=== PATIENT | female | born 1950 | race Caucasian/White ===

== ENCOUNTER 2018-08-12 10:17 | Observation (INO) | payer MEDICARE, OTHER, SELFPAY ==
[2018-08-12] VITALS (13 sets, daily range): BP systolic 105–161; BP diastolic 45–72; PULSE 44–104; RESP 14–23; TEMP 36.2–37; O2SAT 92–98; BMI 34.4; BMI 38.3
--- NOTE | 2018-08-12 | DI.US.S_ITS ---
PROCEDURE: US PERIPH VENOUS LOW EXTREM BI INDICATIONS: RIGHT SIDED PULMONARY EMBOLISM TECHNIQUE: Real-time imaging, as well as color and pulse Doppler interrogation, were performed of the deep veins of both legs from the inguinal ligament to the popliteal fossa. COMPARISON: None. FINDINGS: Right: The common femoral, femoral and popliteal veins are normally compressible, and free of intraluminal thrombus. Color and pulse Doppler demonstrate normal phasic intravascular flow. There is normal augmentation response to distal compression maneuver. Left: The common femoral, femoral and popliteal veins are normally compressible, and free of intraluminal thrombus. Color and pulse Doppler demonstrate normal phasic intravascular flow. There is normal augmentation response to distal compression maneuver. IMPRESSION: No DVT in lower extremities. Dictated by: Tracy Ta M.D. on 08/12/2018 at 16:51 Approved by: Tracy Ta M.D. on 08/12/2018 at 16:57
--- NOTE | 2018-08-12 10:00 | DI.ECHO.S_ITS ---
Echocardiogram Report + + :Name: AMY SUMMERS Study Date: 08/13/2018 Height: 67 in : :Hospital Exam Location: [facility] Weight: 244 lb : : Gender: Female BSA: 2.2 m2 : :: 1950 Age: 68 yrs BP: 143/72 mmHg: :Reason For Study: Right sided PE ,/ RV strain : :Ordering Physician: Darion : :Hospitalist Performed By: Carola Page : :Referring: LISA COBB : + + Interpretation Summary 1) M left ventricular size, wall motion, and systolic function (EF 60-65%). 2) Normal right ventricular size and function. 3) The left atrium is severely dilated. 4) No significant valvular abnormalities. 5) The right ventricular systolic pressure is estimated to be at least 42 mmHg based on an estimated right atrial pressure of 15 mm Hg. 6) No prior Echo available for comparison. Procedure: A two-dimensional transthoracic echocardiogram with color flow and Doppler was performed. The study quality was technically adequate. There is no prior echocardiogram noted for this patient. The patient was in normal sinus rhythm during the exam. Left Ventricle: Left ventricular wall thickness is borderline increased. The left ventricle is normal in size. The ejection fraction is estimated to be 60- 65%. There are no focal wall motion abnormalities. Right Ventricle: The right ventricle is normal in size and function. Atria: The left atrium is severely dilated. The right atrium is mildly dilated. There is no Doppler evidence for an interatrial shunt. Mitral Valve: The mitral valve is normal in structure and function. There is mild mitral regurgitation. Aortic Valve: The aortic valve is trileaflet. The aortic valve opens well. There is no aortic valve stenosis. No aortic regurgitation is present. Tricuspid Valve: The tricuspid valve is normal in structure and function. There is trace tricuspid regurgitation. The right ventricular systolic pressure is estimated to be at least 42 mmHg based on an estimated right atrial pressure of 15 mm Hg. Pulmonic Valve: The pulmonic valve is not well visualized. There is a trace or physiologic amount of pulmonic regurgitation. Great Vessels: The aortic root is normal size. The ascending aorta is mildly enlarged. The pulmonary artery is not well visualized, but is probably normal size. The IVC is dilated (diameter is greater than 2.1 cm) and it collapses less than 50% with a sniff. This suggests a high right atrial pressure of 15 mm Hg. Pericardium/ Pleura There is no pericardial effusion. There is no pleural effusion. MMode/2D Measurements & Calculations LVIDd: 5.1 cm LVOT diam: 2.0 cm LVIDs: 3.7 cm Ao root diam: 3.8 cm FS: 26.6 % asc Aorta Diam: 3.8 cm EPSS: 0.36 cm IVSd: 0.93 cm LVPWd: 1.1 cm LV arizmendi. diameter/BSA (cm/m^2): 2.3 LV sys. diameter/BSA (cm/m^2): 1.7 LA A2 area: 27.2 cm2 RA long axis: 5.3 cm LA A4 area: 32.1 cm2 RA area: 21.9 cm2 LA length (vol): 5.9 cm RA vol: 76.2 ml LA vol: 126.1 ml RA : 34.6 ml/m2 LA vol index: 57.3 ml/m2 IVC diam: 2.2 cm RVD1 (basal): 3.9 cm TAPSE: 2.9 cm Doppler Measurements & Calculations Ao V2 max: 182.2 cm/sec LVOT Max Archie: 127.7 cm/sec Ao V2 mean: 128.0 cm/sec LV V1 max P.5 mmHg Ao max P.3 mmHg LV V1 VTI: 24.5 cm Ao mean P.2 mmHg DERIAN(I,D): 2.1 cm2 Ao V2 VTI: 36.9 cm DERIAN(V,D): 2.2 cm2 sev ratio: 0.66 DERIAN indexed to BSA (cm^2/m^2): 0.97 MV E max archie: 94.9 cm/sec TR max archie: 259.2 cm/sec MV A max archie: 88.6 cm/sec TR max P.9 mmHg MV E/A: 1.1 PA V2 max: 95.2 cm/sec Med Peak E' Archie: 7.2 cm/sec PA V2 mean: 60.8 cm/sec E/E' med: 13.1 PA mean P.7 mmHg Lat Peak E' Archie: 8.2 cm/sec PA Accel Time: 0.07 sec E/E' lat: 11.6 E/e' average: 12.4 MV dec time: 0.19 sec MV P1/2t: 55.5 msec MV P1/2t max archie: 96.8 cm/sec SV(LVOT): 78.7 ml MVA(P1/2t): 4.0 cm2 _ Reading Physician:03:16 PM
--- NOTE | 2018-08-12 10:35 | DI.RAD.S_ITS ---
PROCEDURE: XR CHEST 1V INDICATIONS: chest pain TECHNIQUE: One view of the chest was acquired. COMPARISON: None. FINDINGS: Surgical changes and devices: None. Lungs and pleura: Bibasilar parenchymal opacities, right greater than left including small bilateral pleural effusions. Mediastinum: Mediastinal contours appear normal. Slight prominence of the central vessels. Heart size is mildly enlarged. Bones and chest wall: No suspicious bony lesions. Overlying soft tissues appear unremarkable. IMPRESSION: 1. Bibasilar alveolar opacities and small effusions. Bilateral nature suggests pulmonary edema, although there is only mild prominence of the central vessels. Differential diagnosis includes pneumonia. Correlate clinically. 2. Mild cardiomegaly. Dictated by: Clarissa Ford M.D. on 08/12/2018 at 11:48 Approved by: Clarissa Ford M.D. on 08/12/2018 at 11:50
--- NOTE | 2018-08-12 10:55 | PC.NURSE ---
Pt noted to be in bigeminy consistantly. EKG rate 86-104 w/ perfusing rate 43. Pt denies all chest pain except w/ deep breath. Denies shortness of breath except w/ pain. Denies diaphorisis, nausea / vomiting. Skin is pink / warm / dry. No acute distress.
[2018-08-12 11:24] LABS: Add Manual Diff / Slide Review NO; Basophils Absolute Auto 100 /uL (0-100); Basophils Percent Auto 0.7 % (0-2); Eosinophils Absolute Auto 100 /uL (0-450); Eosinophils Percent Auto 0.4 % (2-4); Hemoglobin 14.2 g/dL (12.0-16.0); Lymphocytes Absolute Auto 1700 /uL (1100-4500); Lymphocytes Percent Auto 12.9 % (25-40); Mean Corpuscular Hemoglobin 28.8 PG (26-34); Mean Corpuscular Volume 87.4 fL (80-100); Monocytes Absolute Auto 1200 /uL (0-900); Monocytes Percent Auto 9.2 % (3-14); Neutrophils Absolute Auto 10000 /uL (1500-7000); Neutrophils Percent Auto 76.8 % (50-75); Platelet Count 193 X10^3/uL (150-400); Red Blood Cell Count 4.92 X10^6/uL (4.0-5.2); Red Cell Distribution Width 13.4 % (11.6-14.8)
[2018-08-12 11:32] LABS: Prothrombin Time 11.6 SECONDS (10.1-12.7)
[2018-08-12 11:35] LABS: PTT Partial Thromboplastin Tim 25 SECONDS (26.4-36.2)
[2018-08-12 11:36] LABS: Alanine Aminotransferase 29 IU/L (9-52); Albumin 4.6 g/dL (3.5-5.0); Albumin Globulin Ratio 1.3 (1.0-2.8); Alkaline Phosphatase 104 U/L (38-126); Aspartate Aminotransferase 17 IU/L (14-36); BUN Creatinine Ratio 18.9 (6-22); Bilirubin Total 0.9 mg/dL (0.2-1.3); Blood Urea Nitrogen 17 mg/dL (7-17); Calcium 9.7 mg/dL (8.4-10.2); Carbon Dioxide 24 mmol/L (22-32); Chloride 103 mmol/L (98-107); Creatine Kinase 96 U/L (30-135); Estimated Glomerular Filt Rate > 60.0 mL/min (>60); Globulin 3.6 g/dL (1.7-4.1); Glucose 134 mg/dL (80-110); HEMOLYSIS < 15 (0-50); Lipase 119 U/L (23-300); Potassium 4.1 mmol/L (3.4-5.1); Sodium 139 mmol/L (137-145); Total Protein 8.2 g/dL (6.3-8.2)
[2018-08-12 11:48] LABS: Troponin I < 0.012 ng/mL (0.01-0.034)
--- NOTE | 2018-08-12 13:18 | ED.CHESTPAIN ---
HPI - Chest Pain General Chief Complaint: Chest Pain Stated Complaint: shortness of breath, rt side pain upon breathing Time Seen by Provider: 08/12/18 13:16 Source: patient, family () and old records reviewed Mode of arrival: ambulatory Limitations: no limitations History of Present Illness HPI narrative: This is a 68-year-old female comes to the emergency department with complaint of right-sided chest pain patient states it is her right lateral chest. She states it started the night before last. She woke up with it. She has noticed it is worse at nighttime. It feels worse when she lays back flat she takes a deep breath, has a cough all this makes it worse. She denies any fevers, denies any nasal congestion or upper respiratory symptoms. She always has a little bit of cough in the morning. She states she has not had any new change in the character or frequency. She states she does feel a little short of breath. and that maybe she has some exertional shortness of breath but that she feels that might just be from the inspiratory pain. If she is sitting quietly she does not have any symptoms. She denies any similar symptoms in the past. No nausea no vomiting no issues with bowel movements or urination. She has had a little swelling in her lower extremities but nothing significant or new. She always gets some cramping in her extremities but states she has had a little bit more in the right calf. She does use CPAP, she takes medication for blood pressure and cholesterol. No prior surgeries. No tobacco. She drinks 2 alcoholic drinks 4 times weekly. She did have a car trip where she drove to [place] and back over about 2 months period and her mom had a blood clot at the age of 90 for unknown reasons. Patient used to take an aspirin daily but was told that she could stop by her primary care. Related Data Home Medications Medication Instructions Recorded Confirmed atorvastatin [Lipitor] 10 mg PO HS #0 tab 12/11/15 08/12/18 amlodipine 7.5 mg PO BEDTIME 08/12/18 08/12/18 losartan 100 mg PO DAILY 08/12/18 08/12/18 metoprolol succinate 50 mg PO BEDTIME 08/12/18 08/12/18 Allergies Allergy/AdvReac Type Severity Reaction Status Date / Time No Known Drug Allergies Allergy Verified 08/12/18 10:25 Review of Systems Review of Systems ROS Unobtainable: All systems reviewed & are unremarkable except as noted in HPI and below Constitutional Denies chills, Denies fever(s), Denies lethargy and Denies weakness ENT Ears, Nose, Mouth, and Throat: Denies nasal congestion Cardiovascular Reports chest pain, Denies chest pain at rest, Denies chest pain with activity, Denies diaphoresis, Denies syncope, Denies rapid heart rate, Reports edema (Slight in lower extremity), Denies irregular heart rhythm, Denies lightheadedness, Denies radiating jaw, neck or arm pain, Denies palpitations, Denies dyspnea, Reports dyspnea on exertion and Denies orthopnea Respiratory Denies chest congestion, Reports cough (Mild, no new change), Denies hemoptysis, Reports pain on inspiration, Reports pain with cough, Denies dyspnea, Reports dyspnea on exertion and Denies wheezing Gastrointestinal Gastrointestinal: Denies abdominal pain, Denies change in bowel habits, Denies diarrhea, Denies nausea and Denies vomiting Musculoskeletal Denies back pain Integumentary/Breasts Denies new lesions and Denies rash Neurologic Denies syncope and Denies weakness Endocrine Denies palpitations Hematologic/Lymphatic Denies other (Blood clot) Allergic/Immunologic Denies wheezing [facility] Medical History High cholesterol (Acute) Hypertension (Acute) Social History (Updated 08/12/18 @ 15:01 by Zuleyma Ely DO) marital status: Smoking Status: Never smoker alcohol intake: current substance use type: does not use Social History (Updated 08/12/18 @ 15:01 by Zuleyma Ely DO) marital status: household members: spouse Smoking Status: Never smoker alcohol intake: current substance use type: does not use Exam Narrative Exam Narrative: GENERAL: Alert and oriented x three, obese, pleasant well-appearing female in mild distress. HEENT: Head normocephalic, atraumatic, EOMI, pupils reactive, face symmetric, moist mucous membranes NECK: Supple, full range of motion CARDIOVASCULAR: Regular rate and rhythm without murmurs, rubs or gallops. Unable to reproduce pain with palpation. No bruising, rash or skin color changes to the right side of the chest. RESPIRATORY: Breath sounds equal bilaterally, no wheezes rales or rhonchi. ABDOMEN: Soft, nontender. Normoactive bowel sounds all 4 quadrants. No guarding or rebound, rigidity, no mass : No CVA tenderness EXTREMITIES: Normal range of motion. 2+ pulses bilateral lower extremities. no edema appreciated on palpation. no swelling in right versus left, equal circumference. Neurovascularly intact NEUROLOGICAL: Cranial nerves II through XII grossly intact. Moving all extremities SKIN: Warm, dry, no petechiae, no rashes or lesions. Initial Vital Signs Initial Vital Signs: Vital Signs Temperature 98.2 F 08/12/18 10:25 Pulse Rate 52 L 08/12/18 10:25 Respiratory Rate 16 08/12/18 10:25 Blood Pressure 159/45 H 08/12/18 10:25 Pulse Oximetry 95 08/12/18 10:25 Course Orders Ordered: ED Orders 08/12/18 10:35 XR chest 1V Stat 08/12/18 10:50 Complete Blood Count AUTO DIFF Stat Comprehensive Metabolic Panel Stat Lipase Stat Partial Thromboplastin Time Stat Prothrombin Time INR Stat Troponin & CK Cardiac Panel Stat 08/12/18 13:06 B Type Natriuretic Peptide Stat 08/12/18 13:55 Troponin & CK Cardiac Panel Stat 08/12/18 14:05 CT angio chest PE protocol Stat 08/12/18 15:51 Consult to Discharge Planning Routine 08/12/18 15:56 Education, smoking cessation ONGOING 08/12/18 16:35 Factor II (Prothrombin) Stat 08/12/18 17:32 Factor V Leiden Mutation Routine Troponin I Q6H 08/12/18 21:50 Troponin I Q6H 08/13/18 06:00 Basic Metabolic Panel Routine Complete Blood Count AUTO DIFF Routine Acetaminophen (Tylenol) 650 mg PO Q6HR PRN PRN Reason: As Needed for Fever/Mild Pain Last Admin: 08/12/18 18:05 Dose: 650 mg Amlodipine Besylate (Norvasc) 7.5 mg PO BEDTIME SYBIL Atorvastatin Calcium (Lipitor) 10 mg PO BEDTIME SYBIL Sodium Chloride (Normal Saline 0.9%) 1,000 mls @ 150 mls/hr IV CONT SYBIL Last Admin: 08/12/18 16:56 Dose: 150 mls/hr Infusion: 08/12/18 16:56 Dose: 150 mls/hr Admin: 08/12/18 14:51 Dose: 150 mls/hr Losartan Potassium (Cozaar) 100 mg PO DAILY SYBIL Metoprolol Succinate (Toprol Xl) 50 mg PO BEDTIME [facility] Ondansetron HCl (Zofran Odt) 4 mg PO Q8HR PRN PRN Reason: Nausea And Vomiting Rivaroxaban (Xarelto) 15 mg PO BIDWM SYBIL Discontinued Medications Enoxaparin Sodium (Lovenox) 100 mg 1 mg/kg (100 mg) SUBCUT NOW ONE Stop: 08/12/18 14:47 Last Admin: 08/12/18 14:51 Dose: Not Given Enoxaparin Sodium (Lovenox) 110 mg 1 mg/kg (110 mg) SUBCUT NOW ONE Stop: 08/12/18 14:53 Last Admin: 08/12/18 15:19 Dose: Not Given Enoxaparin Sodium (Lovenox) 100 mg 1 mg/kg (100 mg) SUBCUT NOW ONE Stop: 08/12/18 15:01 Last Admin: 08/12/18 15:18 Dose: Not Given Enoxaparin Sodium (Lovenox) 110 mg 1 mg/kg (100 mg) SUBCUT NOW ONE Stop: 08/12/18 15:16 Last Admin: 08/12/18 15:19 Dose: 110 mg Ketorolac Tromethamine (Toradol) 30 mg IV NOW ONE Stop: 08/12/18 15:31 Last Admin: 08/12/18 15:31 Dose: 30 mg Ketorolac Tromethamine (Toradol) 10 mg PO Q6HR PRN PRN Reason: Pain, Moderate (4-6) Stop: 08/17/18 15:58 Vital Signs - 8 hr 08/12/18 12:00 08/12/18 13:00 08/12/18 13:33 Temperature Pulse Rate 91 H 80 44 L Respiratory Rate 22 22 18 Blood Pressure Blood Pressure [Right Arm] 120/47 L 120/46 L 161/51 H Pulse Oximetry 94 92 98 08/12/18 14:38 08/12/18 15:45 08/12/18 16:45 Temperature 98.6 F Pulse Rate 90 82 87 Respiratory Rate 23 16 18 Blood Pressure 143/72 H Blood Pressure [Right Arm] 115/47 L 139/59 L Pulse Oximetry 94 98 93 MDM - Chest Pain Lab Data Attestation: I reviewed the patient's lab results. Result diagrams: 08/12/18 10:50 08/12/18 10:50 Lab Results 08/12/18 08/12/18 08/12/18 Range/Units 10:50 10:50 10:50 WBC 13.0 H (4.5-11.0) X10^3/uL RBC 4.92 (4.0-5.2) X10^6/uL Hgb 14.2 (12.0-16.0) g/dL Hct 43.0 (36-46) % MCV 87.4 (80-100) fL MCH 28.8 (26-34) PG MCHC 33.0 (30-36) % RDW 13.4 (11.6-14.8) % Plt Count 193 (150-400) X10^3/uL Neut % (Auto) 76.8 H (50-75) % Lymph % (Auto) 12.9 L (25-40) % [place] % (Auto) 9.2 (3-14) % Eos % (Auto) 0.4 L (2-4) % Baso % (Auto) 0.7 (0-2) % Neut # (Auto) 36982 H (8416-6818) /uL Lymph # (Auto) 1700 (6006-3433) /uL [place] # (Auto) 1200 H (0-900) /uL Eos # (Auto) 100 (0-450) /uL Baso # (Auto) 100 (0-100) /uL PT 11.6 (10.1-12.7) SECONDS INR 1.0 (0.9-1.3) APTT 25 L (26.4-36.2) SECONDS Sodium 139 (137-145) mmol/L Potassium 4.1 (3.4-5.1) mmol/L Chloride 103 (98-107) mmol/L Carbon Dioxide 24 (22-32) mmol/L BUN 17 (7-17) mg/dL Creatinine 0.90 (0.52-1.04) mg/dL Estimated GFR > 60.0 (>60) mL/min BUN/Creatinine Ratio 18.9 (6-22) Glucose 134 H (80-110) mg/dL Calcium 9.7 (8.4-10.2) mg/dL Total Bilirubin 0.9 (0.2-1.3) mg/dL AST 17 (14-36) IU/L ALT 29 (9-52) IU/L Alkaline Phosphatase 104 (38-126) U/L Total Creatine Kinase 96 (30-135) U/L CK-MB (CK-2) TNP CK-MB (CK-2) Rel Index TNP Troponin I < 0.012 (0.01-0.034) ng/mL B-Natriuretic Peptide (<100) Total Protein 8.2 (6.3-8.2) g/dL Albumin 4.6 (3.5-5.0) g/dL Globulin 3.6 (1.7-4.1) g/dL Albumin/Globulin Ratio 1.3 (1.0-2.8) Lipase 119 (23-300) U/L 08/12/18 08/12/18 08/12/18 Range/Units 13:06 13:55 17:32 WBC (4.5-11.0) X10^3/uL RBC (4.0-5.2) X10^6/uL Hgb (12.0-16.0) g/dL Hct (36-46) % MCV (80-100) fL MCH (26-34) PG MCHC (30-36) % RDW (11.6-14.8) % Plt Count (150-400) X10^3/uL Neut % (Auto) (50-75) % Lymph % (Auto) (25-40) % [place] % (Auto) (3-14) % Eos % (Auto) (2-4) % Baso % (Auto) (0-2) % Neut # (Auto) (8594-0711) /uL Lymph # (Auto) (4374-4794) /uL [place] # (Auto) (0-900) /uL Eos # (Auto) (0-450) /uL Baso # (Auto) (0-100) /uL PT (10.1-12.7) SECONDS INR (0.9-1.3) APTT (26.4-36.2) SECONDS Sodium (137-145) mmol/L Potassium (3.4-5.1) mmol/L Chloride (98-107) mmol/L Carbon Dioxide (22-32) mmol/L BUN (7-17) mg/dL Creatinine (0.52-1.04) mg/dL Estimated GFR (>60) mL/min BUN/Creatinine Ratio (6-22) Glucose (80-110) mg/dL Calcium (8.4-10.2) mg/dL Total Bilirubin (0.2-1.3) mg/dL AST (14-36) IU/L ALT (9-52) IU/L Alkaline Phosphatase (38-126) U/L Total Creatine Kinase 92 (30-135) U/L CK-MB (CK-2) TNP CK-MB (CK-2) Rel Index TNP Troponin I < 0.012 < 0.012 (0.01-0.034) ng/mL B-Natriuretic Peptide < 100 (<100) Total Protein (6.3-8.2) g/dL Albumin (3.5-5.0) g/dL Globulin (1.7-4.1) g/dL Albumin/Globulin Ratio (1.0-2.8) Lipase (23-300) U/L Urine Dip Bedside Urine Glucose Negative Bedside Urine Bilirubin - Negative Bedside Urine Ketone - Negative Urine Specific [place] 1.030 Bedside Urine Occult Blood - Negative Bedside Urine pH 5.5 Bedside Urine Protein +/- 15 Bedside Urine Urobilinogen - Negative Bedside Urine Nitrite - Negative Bedside Urine Leukocytes - Negative Esterase Imaging Data CTA chest: Radiologist's impression: [place] [address] CT Scan Report Signed Patient: Aleena Mason [facility]#: [id number] : 1950Acct:[id number] Age/Sex: 68 / FDate of Service: 08/12/18 Loc: ED Accession Number: [id number] Procedure: CT angio chest PE protocol Ordering Provider: Zuleyma Ely D.O. PROCEDURE: CT ANGIO CHEST PE PROTOCOL INDICATIONS: right chest pain, recent long distance road trip, mom had cl TECHNIQUE: After the administration of intravenous contrast, 2 mm thick sections acquired from the pulmonary apices to the posterior costophrenic angles. 3-dimensional maximum intensity projection (MIP) coronal and sagittal reformats were then acquired through the thorax. For radiation dose reduction, the following was used: automated exposure control, adjustment of mA and/or kV according to patient size. COMPARISON: None. Diagnostic FINDINGS: Image quality: Excellent. Pulmonary arteries: There is a moderate-sized filling defect identified within the right lower lobe pulmonary artery which subsequently extends into the segmental and subsegmental pulmonary arterial branches. There may be small pulmonary emboli within the left lower lobe pulmonary arteries. No definite upper lobe pulmonary emboli are evident. No definitive right middle lobe pulmonary embolus is evident. There is no saddle embolism or embolus within the main pulmonary arterial trunk. No definitive filling of the interatrial septum is evident. Lungs and pleura: Bibasilar areas of consolidation are identified within the posterior bilateral lower lobes (right greater than left). There also is mild consolidation within it the inferior margin of the right middle lobe. There is a small right-sided pleural effusion. The possibility of a superimposed pulmonary infarction within the posterior right lower lobe is difficult to exclude. No pneumothorax is evident. No definitive lung mass is appreciated. Mediastinum: Heart size is borderline enlarged. Moderate thinning of the left ventricular apex may be related to previous area of ischemia. No aneurysm is evident. No pericardial effusion is evident. There appear to be areas of coronary artery atherosclerosis. No mediastinal or hilar adenopathy. Thoracic aorta is normal in caliber and enhancement. There is mild aortic atherosclerosis. Esophagus is normal in caliber, with a small hiatal hernia. Bones and chest wall: No suspicious bony lesions. Ribs and thoracic spine appear intact throughout. Moderate degenerative changes of the thoracic spine are evident. Thyroid gland is not enlarged or adequately evaluated. No axillary or supraclavicular adenopathy. Abdomen: Visualized upper abdominal solid organs appear normal in the early arterial phase of enhancement. IMPRESSION: 1. Moderate-sized emboli within the right lower lobe pulmonary arterial branches. There may be additional very small emboli within the left lower lobe pulmonary arteries. No saddle embolism. 2. Bibasilar consolidation (right greater than left) probably represents a combination of atelectasis and pulmonary infarctions. Superimposed pneumonia is felt to be less likely, but cannot be excluded. 3. Small right-sided pleural effusion. 4. Coronary and aortic atherosclerosis. Thinning of the myocardium of the left ventricular apex may be related to prior area of ischemia. Clinical correlation is recommended. 5. Small hiatal hernia. Note: Findings were discussed with Dr. Ely at 1428 hours (PST) on 08/12/18. Dictated by: Frandy Barboza M.D. on 08/12/2018 at 13:14 Approved by: Frandy Barboza M.D. on 08/12/2018 at 13:28 Chest x-ray: Radiologist's impression: Aleena Mason 68 F [address] [address] XRay Report Signed Patient: Aleena Mason [facility]#: [id number] : 1950Acct:[id number] Age/Sex: 68 / FDate of Service: 08/12/18 Loc: ED Accession Number: [id number] Procedure: XR chest 1V Ordering Provider: Zuleyma Ely D.O. PROCEDURE: XR CHEST 1V INDICATIONS: chest pain TECHNIQUE: One view of the chest was acquired. COMPARISON: None. FINDINGS: Surgical changes and devices: None. Lungs and pleura: Bibasilar parenchymal opacities, right greater than left including small bilateral pleural effusions. Mediastinum: Mediastinal contours appear normal. Slight prominence of the central vessels. Heart size is mildly enlarged. Bones and chest wall: No suspicious bony lesions. Overlying soft tissues appear unremarkable. IMPRESSION: 1. Bibasilar alveolar opacities and small effusions. Bilateral nature suggests pulmonary edema, although there is only mild prominence of the central vessels. Differential diagnosis includes pneumonia. Correlate clinically. 2. Mild cardiomegaly. Dictated by: Clarissa Ford M.D. on 08/12/2018 at 11:48 Approved by: Clarissa Ford M.D. on 08/12/2018 at 11:50 ECG Data Attestation: I personally reviewed and interpreted this ECG as follows: Interpretation: Sinus rhythm with bigeminal pattern. The rate of 96 P are 191 QRS of 108 and QTC of 417. Patient has inversion of T-wave in lead 3. No ST elevation. Patient has a prior EKG that it appears similar except for bigeminal pattern T-wave was flattened in lead 3. MDM Narrative Medical decision making narrative: Patient's vital signs have been appropriate, she has not been hypotensive. Heart rate has been up to the 90s occasionally 100 range but typically is in the 90s to 80s. Patient continues to have some chest pain. EKG shows bigeminy, difficult to tell if she has any ST depression in lateral leads with a bigeminal pattern but does appear somewhat similar to her prior EKG except for the pattern changes. Patient's troponin x2 is negative. She has a slight white count, renal function, electrolytes and hemoglobin are appropriate. Chest x-ray showed possible pulmonary edema versus pneumonia. BNP was negative. Patient had multiple risk factors including obesity, long distance travel as well as a family history of blood clots, PE exam was positive. no right heart strain is noted on the CT or in discussion with Radiology. Spoke with Dr. Barajas she accepts. I reviewed patient's imaging, lab work. Plan for observation. Patient was given Lovenox 1 milligram/kilogram sc. Primary care is Dr. Moseley although he has retired so she has been seeing Dr. Hudson. Discharge Plan Departure Patient Disposition: Admitted as Observation Clinical Impression: Cardiac arrhythmia Pulmonary embolism Qualifiers: Pulmonary embolism type: other Chronicity: acute Discharge Date/Time: 08/12/18 16:30 Interventions: ED Discharge Assessment Last Done: 08/12/18 16:30 Referrals: Yoel Moseley MD [Primary Care Provider] - Admit Date/Time: 08/12/18 15:00 Admit Provider: Sondra Barajas
--- NOTE | 2018-08-12 13:36 | PC.NURSE ---
Pt has just returned from cross country drive. Endorses leg cramps. Mother had blood clot of unknown origen in her medical history. Pt does not.
[2018-08-12 13:39] LABS: B Type Natriuretic Peptide < 100 (<100)
--- NOTE | 2018-08-12 14:05 | DI.CT.S_ITS ---
PROCEDURE: CT ANGIO CHEST PE PROTOCOL INDICATIONS: right chest pain, recent long distance road trip, mom had cl TECHNIQUE: After the administration of intravenous contrast, 2 mm thick sections acquired from the pulmonary apices to the posterior costophrenic angles. 3-dimensional maximum intensity projection (MIP) coronal and sagittal reformats were then acquired through the thorax. For radiation dose reduction, the following was used: automated exposure control, adjustment of mA and/or kV according to patient size. COMPARISON: None. Diagnostic FINDINGS: Image quality: Excellent. Pulmonary arteries: There is a moderate-sized filling defect identified within the right lower lobe pulmonary artery which subsequently extends into the segmental and subsegmental pulmonary arterial branches. There may be small pulmonary emboli within the left lower lobe pulmonary arteries. No definite upper lobe pulmonary emboli are evident. No definitive right middle lobe pulmonary embolus is evident. There is no saddle embolism or embolus within the main pulmonary arterial trunk. No definitive filling of the interatrial septum is evident. Lungs and pleura: Bibasilar areas of consolidation are identified within the posterior bilateral lower lobes (right greater than left). There also is mild consolidation within it the inferior margin of the right middle lobe. There is a small right-sided pleural effusion. The possibility of a superimposed pulmonary infarction within the posterior right lower lobe is difficult to exclude. No pneumothorax is evident. No definitive lung mass is appreciated. Mediastinum: Heart size is borderline enlarged. Moderate thinning of the left ventricular apex may be related to previous area of ischemia. No aneurysm is evident. No pericardial effusion is evident. There appear to be areas of coronary artery atherosclerosis. No mediastinal or hilar adenopathy. Thoracic aorta is normal in caliber and enhancement. There is mild aortic atherosclerosis. Esophagus is normal in caliber, with a small hiatal hernia. Bones and chest wall: No suspicious bony lesions. Ribs and thoracic spine appear intact throughout. Moderate degenerative changes of the thoracic spine are evident. Thyroid gland is not enlarged or adequately evaluated. No axillary or supraclavicular adenopathy. Abdomen: Visualized upper abdominal solid organs appear normal in the early arterial phase of enhancement. IMPRESSION: 1. Moderate-sized emboli within the right lower lobe pulmonary arterial branches. There may be additional very small emboli within the left lower lobe pulmonary arteries. No saddle embolism. 2. Bibasilar consolidation (right greater than left) probably represents a combination of atelectasis and pulmonary infarctions. Superimposed pneumonia is felt to be less likely, but cannot be excluded. 3. Small right-sided pleural effusion. 4. Coronary and aortic atherosclerosis. Thinning of the myocardium of the left ventricular apex may be related to prior area of ischemia. Clinical correlation is recommended. 5. Small hiatal hernia. Note: Findings were discussed with Dr. Ely at 1428 hours (PST) on 08/12/18. Dictated by: Frandy Barboza M.D. on 08/12/2018 at 13:14 Approved by: Frandy Barboza M.D. on 08/12/2018 at 13:28
[2018-08-12 14:19] LABS: Creatine Kinase 92 U/L (30-135)
[2018-08-12 14:32] LABS: Troponin I < 0.012 ng/mL (0.01-0.034)
--- NOTE | 2018-08-12 14:40 | ED_ITS ---
HPI - Chest Pain General Chief Complaint: Chest Pain Stated Complaint: shortness of breath, rt side pain upon breathing Time Seen by Provider: 08/12/18 13:16 Source: patient, family () and old records reviewed Mode of arrival: ambulatory Limitations: no limitations History of Present Illness HPI narrative: This is a 68-year-old female comes to the emergency department with complaint of right-sided chest pain patient states it is her right lateral chest. She states it started the night before last. She woke up with it. She has noticed it is worse at nighttime. It feels worse when she lays back flat s he takes a deep breath, has a cough all this makes it worse. She denies any fevers, denies any nasal congestion or upper respiratory symptoms. She always has a little bit of cough in the morning. She states she has not had any new change in the character or frequency. She states she does feel a little short of breath. and that maybe she has some exertional shortness of breath but that she feels that might just be from the inspiratory pain. If she is sitting quietly she does not have any symptoms. She denies any similar symptoms in the past. No nausea no vomiting no issues with bowel movements or urination. She has had a little swelling in her lower extremities but nothing significant or new. She always gets some cramping in her extremities but states she has had a little bit more in the right calf. She does use CPAP, she takes medication for blood pressure and cholesterol. No prior surgeries. No tobacco. She drinks 2 alcoholic drinks 4 times weekly. She did have a car trip where she drove to [place] and back over about 2 months period and her mom had a blood clot at the age of 90 for unknown reasons. Patient used to take an aspirin daily but was told that she could stop by her primary care. Related Data Home Medications Medication Instructions Recorded Confirmed atorvastatin [Lipitor] 10 mg PO HS #0 tab 12/11/15 08/12/18 amlodipine 7.5 mg PO BEDTIME 08/12/18 08/12/18 losartan 100 mg PO DAILY 08/12/18 08/12/18 metoprolol succinate 50 mg PO BEDTIME 08/12/18 08/12/18 Allergies Allergy/AdvReac Type Severity Reaction Status Date / Time No Known Drug Allergies Allergy Verified 08/12/18 10:25 Review of Systems Review of Systems ROS Unobtainable: All systems reviewed & are unremarkable except as noted in HPI and below Constitutional Denies chills, Denies fever(s), Denies lethargy and Denies weakness ENT Ears, Nose, Mouth, and Throat: Denies nasal congestion Cardiovascular Reports chest pain, Denies chest pain at rest, Denies chest pain with activity, Denies diaphoresis, Denies syncope, Denies rapid heart rate, Reports edema (Slight in lower extremity), Denies irregular heart rhythm, Denies lightheadedness, Denies radiating jaw, neck or arm pain, Denies palpitations, Denies dyspnea, Reports dyspnea on exertion and Denies orthopnea Respiratory Denies chest congestion, Reports cough (Mild, no new change), Denies hemoptysis, Reports pain on inspiration, Reports pain with cough, Denies dyspnea, Reports dyspnea on exertion and Denies wheezing Gastrointestinal Gastrointestinal: Denies abdominal pain, Denies change in bowel habits, Denies diarrhea, Denies nausea and Denies vomiting Musculoskeletal Denies back pain Integumentary/Breasts Denies new lesions and Denies rash Neurologic Denies syncope and Denies weakness Endocrine Denies palpitations Hematologic/Lymphatic Denies other (Blood clot) Allergic/Immunologic Denies wheezing [facility] Medical History High cholesterol (Acute) Hypertension (Acute) Social History (Updated 08/12/18 @ 15:01 by Zuleyma Ely DO) marital status: Smoking Status: Never smoker alcohol intake: current substance use type: does not use Social History (Updated 08/12/18 @ 15:01 by Zuleyma Ely DO) marital status: household members: spouse Smoking Status: Never smoker alcohol intake: current substance use type: does not use Exam Narrative Exam Narrative: GENERAL: Alert and oriented x three, obese, pleasant well- appearing female in mild distress. HEENT: Head normocephalic, atraumatic, EOMI, pupils reactive, face symmetric, moist mucous membranes NECK: Supple, full range of motion CARDIOVASCULAR: Regular rate and rhythm without murmurs, rubs or gallops. Unable to reproduce pain with palpation. No bruising, rash or skin color changes to the right side of the chest. RESPIRATORY: Breath sounds equal bilaterally, no wheezes rales or rhonchi. ABDOMEN: Soft, nontender. Normoactive bowel sounds all 4 quadrants. No guard ing or rebound, rigidity, no mass : No CVA tenderness EXTREMITIES: Normal range of motion. 2+ pulses bilateral lower extremities. no edema appreciated on palpation. no swelling in right versus left, equal circumference. Neurovascularly intact NEUROLOGICAL: Cranial nerves II through XII grossly intact. Moving all extremities SKIN: Warm, dry, no petechiae, no rashes or lesions. Initial Vital Signs Initial Vital Signs: Vital Signs Temperature 98.2 F 08/12/18 10:25 Pulse Rate 52 L 08/12/18 10:25 Respiratory Rate 16 08/12/18 10:25 Blood Pressure 159/45 H 08/12/18 10:25 Pulse Oximetry 95 08/12/18 10:25 Course Orders Ordered: ED Orders 08/12/18 10:35 XR chest 1V Stat 08/12/18 10:50 Complete Blood Count AUTO DIFF Stat Comprehensive Metabolic Panel Stat Lipase Stat Partial Thromboplastin Time Stat Prothrombin Time INR Stat Troponin & CK Cardiac Panel Stat 08/12/18 13:06 B Type Natriuretic Peptide Stat 08/12/18 13:55 Troponin & CK Cardiac Panel Stat 08/12/18 14:05 CT angio chest PE protocol Stat 08/12/18 15:51 Consult to Discharge Planning Routine 08/12/18 15:56 Education, smoking cessation ONGOING 08/12/18 16:35 Factor II (Prothrombin) Stat 08/12/18 17:32 Factor V Leiden Mutation Routine Troponin I Q6H 08/12/18 21:50 Troponin I Q6H 08/13/18 06:00 Basic Metabolic Panel Routine Complete Blood Count AUTO DIFF Routine Acetaminophen (Tylenol) 650 mg PO Q6HR PRN PRN Reason: As Needed for Fever/Mild Pain Last Admin: 08/12/18 18:05 Dose: 650 mg Amlodipine Besylate (Norvasc) 7.5 mg PO BEDTIME SYBIL Atorvastatin Calcium (Lipitor) 10 mg PO BEDTIME SYBIL Sodium Chloride (Normal Saline 0.9%) 1,000 mls @ 150 mls/hr IV CONT SYBIL Last Admin: 08/12/18 16:56 Dose: 150 mls/hr Infusion: 08/12/18 16:56 Dose: 150 mls/hr Admin: 08/12/18 14:51 Dose: 150 mls/hr Losartan Potassium (Cozaar) 100 mg PO DAILY SYBIL Metoprolol Succinate (Toprol Xl) 50 mg PO BEDTIME [facility] Ondansetron HCl (Zofran Odt) 4 mg PO Q8HR PRN PRN Reason: Nausea And Vomiting Rivaroxaban (Xarelto) 15 mg PO BIDWM SYBIL Discontinued Medications Enoxaparin Sodium (Lovenox) 100 mg 1 mg/kg (100 mg) SUBCUT NOW ONE Stop: 08/12/18 14:47 Last Admin: 08/12/18 14:51 Dose: Not Given Enoxaparin Sodium (Lovenox) 110 mg 1 mg/kg (110 mg) SUBCUT NOW ONE Stop: 08/12/18 14:53 Last Admin: 08/12/18 15:19 Dose: Not Given Enoxaparin Sodium (Lovenox) 100 mg 1 mg/kg (100 mg) SUBCUT NOW ONE Stop: 08/12/18 15:01 Last Admin: 08/12/18 15:18 Dose: Not Given Enoxaparin Sodium (Lovenox) 110 mg 1 mg/kg (100 mg) SUBCUT NOW ONE Stop: 08/12/18 15:16 Last Admin: 08/12/18 15:19 Dose: 110 mg Ketorolac Tromethamine (Toradol) 30 mg IV NOW ONE Stop: 08/12/18 15:31 Last Admin: 08/12/18 15:31 Dose: 30 mg Ketorolac Tromethamine (Toradol) 10 mg PO Q6HR PRN PRN Reason: Pain, Moderate (4-6) Stop: 08/17/18 15:58 Vital Signs - 8 hr 08/12/18 12:00 08/12/18 13:00 08/12/18 13:33 Temperature Pulse Rate 91 H 80 44 L Respiratory Rate 22 22 18 Blood Pressure Blood Pressure [Right Arm] 120/47 L 120/46 L 161/51 H Pulse Oximetry 94 92 98 08/12/18 14:38 08/12/18 15:45 08/12/18 16:45 Temperature 98.6 F Pulse Rate 90 82 87 Respiratory Rate 23 16 18 Blood Pressure 143/72 H Blood Pressure [Right Arm] 115/47 L 139/59 L Pulse Oximetry 94 98 93 MDM - Chest Pain Lab Data Attestation: I reviewed the patient's lab results. Result diagrams: 08/12/18 10:50 08/12/18 10:50 Lab Results 08/12/18 08/12/18 08/12/18 Range/Units 10:50 10:50 10:50 WBC 13.0 H (4.5-11.0) X10^3/uL RBC 4.92 (4.0-5.2) X10^6/uL Hgb 14.2 (12.0-16.0) g/dL Hct 43.0 (36-46) % MCV 87.4 (80-100) fL MCH 28.8 (26-34) PG MCHC 33.0 (30-36) % RDW 13.4 (11.6-14.8) % Plt Count 193 (150-400) X10^3/uL Neut % (Auto) 76.8 H (50-75) % Lymph % (Auto) 12.9 L (25-40) % [place] % (Auto) 9.2 (3-14) % Eos % (Auto) 0.4 L (2-4) % Baso % (Auto) 0.7 (0-2) % Neut # (Auto) 97540 H (3373-9442) /uL Lymph # (Auto) 1700 (6123-7353) /uL [place] # (Auto) 1200 H (0-900) /uL Eos # (Auto) 100 (0-450) /uL Baso # (Auto) 100 (0-100) /uL PT 11.6 (10.1-12.7) SECONDS INR 1.0 (0.9-1.3) APTT 25 L (26.4-36.2) SECONDS Sodium 139 (137-145) mmol/L Potassium 4.1 (3.4-5.1) mmol/L Chloride 103 (98-107) mmol/L Carbon Dioxide 24 (22-32) mmol/L BUN 17 (7-17) mg/dL Creatinine 0.90 (0.52-1.04) mg/dL Estimated GFR > 60.0 (>60) mL/min BUN/Creatinine Ratio 18.9 (6-22) Glucose 134 H (80-110) mg/dL Calcium 9.7 (8.4-10.2) mg/dL Total Bilirubin 0.9 (0.2-1.3) mg/dL AST 17 (14-36) IU/L ALT 29 (9-52) IU/L Alkaline Phosphatase 104 (38-126) U/L Total Creatine Kinase 96 (30-135) U/L CK-MB (CK-2) TNP CK-MB (CK-2) Rel Index TNP Troponin I < 0.012 (0.01-0.034) ng/mL B-Natriuretic Peptide (<100) Total Protein 8.2 (6.3-8.2) g/dL Albumin 4.6 (3.5-5.0) g/dL Globulin 3.6 (1.7-4.1) g/dL Albumin/Globulin Ratio 1.3 (1.0-2.8) Lipase 119 (23-300) U/L 08/12/18 08/12/18 08/12/18 Range/Units 13:06 13:55 17:32 WBC (4.5-11.0) X10^3/uL RBC (4.0-5.2) X10^6/uL Hgb (12.0-16.0) g/dL Hct (36-46) % MCV (80-100) fL MCH (26-34) PG MCHC (30-36) % RDW (11.6-14.8) % Plt Count (150-400) X10^3/uL Neut % (Auto) (50-75) % Lymph % (Auto) (25-40) % [place] % (Auto) (3-14) % Eos % (Auto) (2-4) % Baso % (Auto) (0-2) % Neut # (Auto) (5165-1591) /uL Lymph # (Auto) (5525-0445) /uL [place] # (Auto) (0-900) /uL Eos # (Auto) (0-450) /uL Baso # (Auto) (0-100) /uL PT (10.1-12.7) SECONDS INR (0.9-1.3) APTT (26.4-36.2) SECONDS Sodium (137-145) mmol/L Potassium (3.4-5.1) mmol/L Chloride (98-107) mmol/L Carbon Dioxide (22-32) mmol/L BUN (7-17) mg/dL Creatinine (0.52-1.04) mg/dL Estimated GFR (>60) mL/min BUN/Creatinine Ratio (6-22) Glucose (80-110) mg/dL Calcium (8.4-10.2) mg/dL Total Bilirubin (0.2-1.3) mg/dL AST (14-36) IU/L ALT (9-52) IU/L Alkaline Phosphatase (38-126) U/L Total Creatine Kinase 92 (30-135) U/L CK-MB (CK-2) TNP CK-MB (CK-2) Rel Index TNP Troponin I < 0.012 < 0.012 (0.01-0.034) ng/mL B-Natriuretic Peptide < 100 (<100) Total Protein (6.3-8.2) g/dL Albumin (3.5-5.0) g/dL Globulin (1.7-4.1) g/dL Albumin/Globulin Ratio (1.0-2.8) Lipase (23-300) U/L Urine Dip Bedside Urine Glucose Negative Bedside Urine Bilirubin - Negative Bedside Urine Ketone - Negative Urine Specific [place] 1.030 Bedside Urine Occult Blood - Negative Bedside Urine pH 5.5 Bedside Urine Protein +/- 15 Bedside Urine Urobilinogen - Negative Bedside Urine Nitrite - Negative Bedside Urine Leukocytes - Negative Esterase Imaging Data CTA chest: Radiologist's impression: [place] [address] CT Scan Report Signed Patient: Aleena Mason [facility]#: [id number] : 1950Acct:[id number] Age/Sex: 68 / FDate of Service: 08/12/18 Loc: ED Accession Number: [id number] Procedure: CT angio chest PE protocol Ordering Provider: Zuleyma Ely D.O. PROCEDURE: CT ANGIO CHEST PE PROTOCOL INDICATIONS: right chest pain, recent long distance road trip, mom had cl TECHNIQUE: After the administration of intravenous contrast, 2 mm thick sections acquired from the pulmonary apices to the posterior costophrenic angles. 3-dimensional maximum intensity projection (MIP) coronal and sagittal reformats were then acquired through the thorax. For radiation dose reduction, the following was used: automated exposure control, adjustment of mA and/or kV according to patient size. COMPARISON: None. Diagnostic FINDINGS: Image quality: Excellent. Pulmonary arteries: There is a moderate-sized filling defect identified within the right lower lobe pulmonary artery which subsequently extends into the segmental and subsegmental pulmonary arterial branches. There may be small pulmonary emboli within the left lower lobe pulmonary arteries. No definite upper lobe pulmonary emboli are evident. No definitive right middle lobe pulmonary embolus is evident. There is no saddle embolism or embolus within the main pulmonary arterial trunk. No definitive filling of the interatrial septum is evident. Lungs and pleura: Bibasilar areas of consolidation are identified within the posterior bilateral lower lobes (right greater than left). There also is mild consolidation within it the inferior margin of the right middle lobe. There is a small right-sided pleural effusion. The possibility of a superimposed pulmonary infarction within the posterior right lower lobe is difficult to exclude. No pneumothorax is evident. No definitive lung mass is appreciated. Mediastinum: Heart size is borderline enlarged. Moderate thinning of the left ventricular apex may be related to previous area of ischemia. No aneurysm is evident. No pericardial effusion is evident. There appear to be areas of coronary artery atherosclerosis. No mediastinal or hilar adenopathy. Thoracic aorta is normal in caliber and enhancement. There is mild aortic atherosclerosis. Esophagus is normal in caliber, with a small hiatal hernia. Bones and chest wall: No suspicious bony lesions. Ribs and thoracic spine appear intact throughout. Moderate degenerative changes of the thoracic spine are evident. Thyroid gland is not enlarged or adequately evaluated. No axillary or supraclavicular adenopathy. Abdomen: Visualized upper abdominal solid organs appear normal in the early arterial phase of enhancement. IMPRESSION: 1. Moderate-sized emboli within the right lower lobe pulmonary arterial b ranches. There may be additional very small emboli within the left lower lobe pulmonary arteries. No saddle embolism. 2. Bibasilar consolidation (right greater than left) probably represents a co mbination of atelectasis and pulmonary infarctions. Superimposed pneumonia is felt to be less likely, but cannot be excluded. 3. Small right-sided pleural effusion. 4. Coronary and aortic atherosclerosis. Thinning of the myocardium of the left ventricular apex may be related to prior area of ischemia. Clinical correlation is recommended. 5. Small hiatal hernia. Note: Findings were discussed with Dr. Ely at 1428 hours (PST) on 08/12/18. Dictated by: Frandy Barboza M.D. on 08/12/2018 at 13:14 Approved by: Frandy Barboza M.D. on 08/12/2018 at 13:28 Chest x-ray: Radiologist's impression: Aleena Mason 68 F [address] [address] XRay Report Signed Patient: Aleena Mason [facility]#: [id number] : 1950Acct:[id number] Age/Sex: 68 / FDate of Service: 08/12/18 Loc: ED Accession Number: [id number] Procedure: XR chest 1V Ordering Provider: Zuleyma Ely D.O. PROCEDURE: XR CHEST 1V INDICATIONS: chest pain TECHNIQUE: One view of the chest was acquired. COMPARISON: None. FINDINGS: Surgical changes and devices: None. Lungs and pleura: Bibasilar parenchymal opacities, right greater than left including small bilateral pleural effusions. Mediastinum: Mediastinal contours appear normal. Slight prominence of the central vessels. Heart size is mildly enlarged. Bones and chest wall: No suspicious bony lesions. Overlying soft tissues appear unremarkable. IMPRESSION: 1. Bibasilar alveolar opacities and small effusions. Bilateral nature suggests pulmonary edema, although there is only mild prominence of the central vessels. Differential diagnosis includes pneumonia. Correlate clinically. 2. Mild cardiomegaly. Dictated by: Clarissa Ford M.D. on 08/12/2018 at 11:48 Approved by: Clarissa Ford M.D. on 08/12/2018 at 11:50 ECG Data Attestation: I personally reviewed and interpreted this ECG as follows: Interpretation: Sinus rhythm with bigeminal pattern. The rate of 96 P are 191 QRS of 108 and QTC of 417. Patient has inversion of T-wave in lead 3. No ST elevation. Patient has a prior EKG that it appears similar except for bigeminal pattern T-wave was flattened in lead 3. MDM Narrative Medical decision making narrative: Patient's vital signs have been appropriate, she has not been hypotensive. Heart rate has been up to the 90s occasionally 100 range but typically is in the 90s to 80s. Patient continues to have some chest pain. EKG shows bigeminy, difficult to tell if she has any ST depression in lateral leads with a bigeminal pattern but does appear somewhat similar to her prior EKG except for the pattern changes. Patient's troponin x2 is negative. She has a slight white count, renal function, electrolytes and hemoglobin are appropriate. Chest x-ray showed possible pulmonary edema versus pneumonia. BNP was negative. Patient had multiple risk factors including obesity, long distance travel as well as a family history of blood clots, PE exam was positive. no right heart strain is noted on the CT or in discussion with Radiology. Spoke with Dr. Barajas she accepts. I reviewed patient's imaging, lab work. Plan for observation. Patient was given Lovenox 1 milligram/kilogram sc. Primary care is Dr. Moseley although he has retired so she has been seeing Dr. Hudson. Discharge Plan Departure Patient Disposition: Admitted as Observation Clinical Impression: Cardiac arrhythmia Pulmonary embolism Qualifiers: Pulmonary embolism type: other Chronicity: acute Discharge Date/Time: 08/12/18 16:30 Interventions: ED Discharge Assessment Last Done: 08/12/18 16:30 Referrals: Yoel Moseley MD [Primary Care Provider] - Admit Date/Time: 08/12/18 15:00 Admit Provider: Sondra Barajas
[2018-08-12] MEDS: SODIUM CHLORIDE 0.9% 1,000 ML 150 ML IV ×2 (14:51→16:56)
[2018-08-12] MEDS: ENOXAPARIN 100 MG/ML SYRINGE 110 MG SUBCUT (15:19)
[2018-08-12] MEDS: KETOROLAC 30 MG/ML VIAL IV (15:31)
--- NOTE | 2018-08-12 15:32 | PC.NURSE ---
Hospitalist in to evaluate pt.
--- NOTE | 2018-08-12 15:46 | PC.NURSE ---
Now NSR w/ occasional PVCs. PVCs are non perfusing. Rate is 85. [place] / warm / dry.
--- NOTE | 2018-08-12 16:28 | P.HP_ITS ---
History of Present Illness Date Patient Seen: 08/12/18 Time Patient Seen: 15:30 Chief complaint: shortness of breath, rt side pain upon breathing Narrative: Aleena Mason is a 68-year-old female with a medical diagnosis of hypertension and hyperlipidemia, returned from a 2 month trip which included to 11 [address] across the country and developed pain with inspiration and expiration during the last 2 nights to the point of waking her up. She states that she has been feeling under the weather since returning from her trip which was approximately 2 weeks ago but went ahead and plugged along, thinking she would improve. She does have complaints of mild headaches that she has been t aking ibuprofen for. Her main complaint though which brought her into the ED was shortness of breath. Both her and her were seen by their PCP approximately 1-2 months prior to their trip and were told to discontinue the aspirin. She denies anterior chest pain, palpitations, difficulty swallowing, she did endorse headaches, nausea or vomiting, abdominal pain, dysuria, diarrhea or constipation, rashes, or numbing and tingling in her extremities. She denies having pain in her groin at all. Patient History Medical History High cholesterol (Acute) Hypertension (Acute) Social History (Updated 08/12/18 @ 15:01 by Zuleyma Ely DO) marital status: Smoking Status: Never smoker alcohol intake: current substance use type: does not use Family & Social History Tobacco & Substance use: Smoking Status Never smoker alcohol intake current Meds Home Medications Medication Instructions Recorded Confirmed Type atorvastatin [Lipitor] 10 mg PO HS #0 tab 12/11/15 08/12/18 History amlodipine 7.5 mg PO BEDTIME 08/12/18 08/12/18 History losartan 100 mg PO DAILY 08/12/18 08/12/18 History metoprolol succinate 50 mg PO BEDTIME 08/12/18 08/12/18 History Allergies Allergy/AdvReac Type Severity Reaction Status Date / Time No Known Drug Allergies Allergy Verified 08/12/18 10:25 Review of Systems Constitutional Constitutional: Denies excessive sweating, Reports fatigue, Denies frequent falls and Reports headache(s) Comments: Feeling off since returning from 2 month driving to and from [place] ENT Ears, Nose, Mouth, and Throat: No dizziness, Yes headache(s) and Yes sinus pressure Cardiovascular Cardiovascular: Reports chest pain with activity, Denies fainting, Reports shortness of breath with activity and Reports shortness of breath causing sudden awakening Respiratory Respiratory: Denies cough, Denies excessive phlegm production, Reports pain on inspiration and Reports dyspnea on exertion Comments: on expiration Gastrointestinal Gastrointestinal: Denies constipation, Denies loose stools, Denies nausea and Denies vomiting Musculoskeletal Musculoskeletal: Reports system reviewed; no additional complaints, except as documented and Denies numbness Neurologic Neurologic: Denies dizziness, Denies syncope, Denies frequent falls, Reports headache(s), Denies memory loss and Denies numbness Psychiatric Psychiatric: Denies memory loss Endocrine Endocrine: Denies excessive sweating and Reports fatigue Hematologic/Lymphatic Hematologic/Lymphatic: Denies as per HPI, Denies system reviewed and no additional complaints, except as documented, Denies easy bleeding, Denies easy bruising, Denies lymphadenopathy and Denies other Exam Vital Signs (past 8 hours): - 08/12/18 10:25 08/12/18 10:52 08/12/18 11:00 Temperature 98.2 F Pulse Rate 52 L 104 H 44 L Respiratory Rate 16 14 18 Blood Pressure 159/45 H Blood Pressure [Right Arm] 144/49 H 125/46 L Pulse Oximetry 95 96 94 08/12/18 12:00 08/12/18 13:00 08/12/18 13:33 Temperature Pulse Rate 91 H 80 44 L Respiratory Rate 22 22 18 Blood Pressure Blood Pressure [Right Arm] 120/47 L 120/46 L 161/51 H Pulse Oximetry 94 92 98 08/12/18 14:38 08/12/18 15:45 Temperature Pulse Rate 90 82 Respiratory Rate 23 16 Blood Pressure Blood Pressure [Right Arm] 115/47 L 139/59 L Pulse Oximetry 94 98 Oxygen Delivery Method Room Air Const General: healthy appearing Nutritional Appearance: overweight Orientation: alert, awake and oriented x3 HENMT Head: normocephalic and atraumatic Ears: hearing grossly normal bilaterally Face and sinus: normal facial exam Teeth and gingiva: dentition normal Eyes General: appearance normal, both eyes and all related structures Eyelids: eyelids normal Conjunctivae: conjunctivae normal Sclera: sclerae normal Neck Neck: normal visual inspection, full ROM, trachea midline, No torticollis and No JVD Resp Auscultation: clear to auscultation bilaterally Other: Due to pain Cardio Rate: regular rate Rhythm: regular rhythm Heart Sounds: S1 normal, S2 normal and no murmurs GI Inspection: normal to inspection Palpation: soft and No tender Auscultation: normal bowel sounds Back/Spine/Pelvis Back: normal to inspection Skin General: no rashes or lesions noted, elasticity normal and turgor normal Lesions: no lesions Rashes: no rashes Trauma: no lacerations or abrasions Neuro General: alert, awake, oriented x3 and normal light touch, pain and propioception Cranial Nerves: able to rotate head bilaterally Cognition: normal cognition Speech: speech normal Motor: muscle tone normal throughout Extrem General: normal to inspection, full ROM and capillary refill normal Psych Mental Status: mental status grossly normal Speech and Movement: speech clear Affect: normal affect Attitude: cooperative Thought Process: normal Thought Content: normal Judgment: judgment good Objective Labs Result Diagrams: 08/12/18 10:50 08/12/18 10:50 Labs: Laboratory Results - last 24 hr 08/12/18 08/12/18 08/12/18 10:50 10:50 10:50 WBC 13.0 H RBC 4.92 Hgb 14.2 Hct 43.0 MCV 87.4 MCH 28.8 MCHC 33.0 RDW 13.4 Plt Count 193 Neut % (Auto) 76.8 H Lymph % (Auto) 12.9 L [place] % (Auto) 9.2 Eos % (Auto) 0.4 L Baso % (Auto) 0.7 Neut # (Auto) 39770 H Lymph # (Auto) 1700 [place] # (Auto) 1200 H Eos # (Auto) 100 Baso # (Auto) 100 PT 11.6 INR 1.0 APTT 25 L Sodium 139 Potassium 4.1 Chloride 103 Carbon Dioxide 24 BUN 17 Creatinine 0.90 Estimated GFR > 60.0 BUN/Creatinine Ratio 18.9 Glucose 134 H Calcium 9.7 Total Bilirubin 0.9 AST 17 ALT 29 Alkaline Phosphatase 104 Total Creatine Kinase 96 CK-MB (CK-2) TNP CK-MB (CK-2) Rel Index TNP Troponin I < 0.012 B-Natriuretic Peptide Total Protein 8.2 Albumin 4.6 Globulin 3.6 Albumin/Globulin Ratio 1.3 Lipase 119 08/12/18 08/12/18 13:06 13:55 WBC RBC Hgb Hct MCV MCH MCHC RDW Plt Count Neut % (Auto) Lymph % (Auto) [place] % (Auto) Eos % (Auto) Baso % (Auto) Neut # (Auto) Lymph # (Auto) [place] # (Auto) Eos # (Auto) Baso # (Auto) PT INR APTT Sodium Potassium Chloride Carbon Dioxide BUN Creatinine Estimated GFR BUN/Creatinine Ratio Glucose Calcium Total Bilirubin AST ALT Alkaline Phosphatase Total Creatine Kinase 92 CK-MB (CK-2) TNP CK-MB (CK-2) Rel Index TNP Troponin I < 0.012 B-Natriuretic Peptide < 100 Total Protein Albumin Globulin Albumin/Globulin Ratio Lipase Assessment & Plan (1) Essential hypertension: Problem details: Continue home doses of amlodipine 7.5 mg p.o. at bedtime, losartan 100 mg p.o. d aily and metoprolol succinate 50 mg p.o. at bedtime Current visit: Yes Status: Chronic (2) Hyperlipidemia: Problem details: Continue home dose of atorvastatin 10 mg p.o. daily Current visit: Yes Status: Chronic (3) Pulmonary embolism: Problem details: Patient will have therapeutic dose of Lovenox 110 mg subcu twice daily Echocardiogram today Bilateral Doppler ultrasounds to determine clot burden Total 30 mg p.o. subcu q hours as needed for moderate pain Qualifiers: Acute cor pulmonale presence: Chronicity: acute Pulmonary embolism type: other Current visit: Yes Status: Acute (4) Cardiac arrhythmia: Problem details: Patient will be admitted on telemetry and pulse ox Qualifiers: Arrhythmia type: Atrial fibrillation type: Atrial flutter type: Premature depolarization type: Current visit: Yes Status: Acute Quality VTE Deep Vein Thrombosis/Pulmonary Embolism Present on Admission: Yes
[2018-08-12] MEDS: ACETAMINOPHEN 325 MG TABLET 650 MG PO (18:05)
[2018-08-12 18:06] LABS: Troponin I < 0.012 ng/mL (0.01-0.034)
[2018-08-12] MEDS: METOPROLOL ER 50 MG TABLET PO (21:44)
[2018-08-12] MEDS: ATORVASTATIN 10 MG TABLET PO (21:44)
[2018-08-12] MEDS: AMLODIPINE 5 MG TABLET 7.5 MG PO (21:45)
[2018-08-12 22:18] LABS: Troponin I < 0.012 ng/mL (0.01-0.034)
[2018-08-13] MEDS: SODIUM CHLORIDE 0.9% 1,000 ML 150 ML IV ×2 (00:07→06:34)
[2018-08-13] MEDS: ACETAMINOPHEN 325 MG TABLET 650 MG PO ×2 (00:13→06:38)
--- NOTE | 2018-08-13 00:31 | PC.NURSE ---
2300- Pt admit for freq SOB and pain w/ inspiration. Found to have R sided PE. Pain w/ coughing and deep breaths however stable O2 sats on RA. Tele in place reading SR w/ some PVC's. NS running as ordered in R AC peripheral IV. 0015- PO Tylenol given for pain w/ coughing & deep breathing. 0500- Pain controlled thru the night, moving SBA to bathroom. IV remains patent.
[2018-08-13 04:53] VITALS: BP 153/74; PULSE 67; RESP 18; TEMP 36.8; O2SAT 95
--- NOTE | 2018-08-13 05:36 | PM.PN.1 ---
Subjective Date Patient Seen: 08/13/18 Interval history: Aleena Mason is a 68-year-old female with a past medical history significant for hypertension and hyperlipidemia who recently returned from a 2 month trip which included to 11 days of driving across the country and developed right-sided pleuritic chest pain and admitted for right-sided PE. The patient is resting in bed comfortably and in no acute distress. He or she denies headache, ear pain, rhinitis, sore throat, cough, shortness of breath, chest pain, abdominal pain, nausea, vomiting, fever, chills, dysuria, diarrhea or constipation. He or she is voiding and eliminating without difficulty. He or she is up ambulating without or with assistance. Exam Vital Signs (past 8 hours): - 08/12/18 21:44 08/12/18 23:15 08/12/18 23:56 Temperature 97.2 F L Pulse Rate 74 56 L 56 L Respiratory Rate 18 Blood Pressure 116/53 L 105/53 L 105/53 L Pulse Oximetry 94 08/13/18 04:53 Temperature 98.3 F Pulse Rate 67 Respiratory Rate 18 Blood Pressure 153/74 H Pulse Oximetry 95 Oxygen Delivery Method Room Air Oxygen Flow Rate 0 Narrative Exam Narrative: General: No acute distress, well-developed, well-nourished, appropriately interactive HEENT: Normocephalic, atraumatic. External ears without defect. Pupils equal, round, and reactive to light and accommodation. Anicteric sclerae, moist conjunctivae, and no lid lag. Oropharynx free of erythema and cobble stoning with moist mucosa. Neck: Supple with full range of motion. No jugular venous distension. No bruits. No lymphadenopathy or thyromegaly. Cardiovascular: Regular rate and rhythm with no murmurs, rubs, or gallops appreciated Pulmonary: Clear to auscultation bilaterally with no crackles, wheezes, or rhonchi. Normal respiratory effort with no use of accessory muscles. Abdomen: Bowel tones present. Soft, nontender, nondistended. No hepatosplenomegaly or masses appreciated. Extremities: No clubbing, cyanosis, or edema. Skin: Normal temperature, turgor, and texture; no rash, ulcers, or subcutaneous nodules appreciated. Neurological: Cranial nerves grossly intact. Normal muscle strength, tone, and bulk. Reflexes, coordination, and sensory function within normal limits. No known gait impairment. Psychiatric: Normal mood and affect. Alert and oriented to person, place, and time. Objective Labs Result Diagrams: 08/13/18 05:27 08/13/18 05:27 Labs: Laboratory Results - last 24 hr 08/12/18 08/12/18 08/12/18 10:50 10:50 10:50 WBC 13.0 H RBC 4.92 Hgb 14.2 Hct 43.0 MCV 87.4 MCH 28.8 MCHC 33.0 RDW 13.4 Plt Count 193 Neut % (Auto) 76.8 H Lymph % (Auto) 12.9 L [place] % (Auto) 9.2 Eos % (Auto) 0.4 L Baso % (Auto) 0.7 Neut # (Auto) 90783 H Lymph # (Auto) 1700 [place] # (Auto) 1200 H Eos # (Auto) 100 Baso # (Auto) 100 PT 11.6 INR 1.0 APTT 25 L Sodium 139 Potassium 4.1 Chloride 103 Carbon Dioxide 24 BUN 17 Creatinine 0.90 Estimated GFR > 60.0 BUN/Creatinine Ratio 18.9 Glucose 134 H Calcium 9.7 Total Bilirubin 0.9 AST 17 ALT 29 Alkaline Phosphatase 104 Total Creatine Kinase 96 CK-MB (CK-2) TNP CK-MB (CK-2) Rel Index TNP Troponin I < 0.012 B-Natriuretic Peptide Total Protein 8.2 Albumin 4.6 Globulin 3.6 Albumin/Globulin Ratio 1.3 Lipase 119 08/12/18 08/12/18 08/12/18 13:06 13:55 17:32 WBC RBC Hgb Hct MCV MCH MCHC RDW Plt Count Neut % (Auto) Lymph % (Auto) [place] % (Auto) Eos % (Auto) Baso % (Auto) Neut # (Auto) Lymph # (Auto) [place] # (Auto) Eos # (Auto) Baso # (Auto) PT INR APTT Sodium Potassium Chloride Carbon Dioxide BUN Creatinine Estimated GFR BUN/Creatinine Ratio Glucose Calcium Total Bilirubin AST ALT Alkaline Phosphatase Total Creatine Kinase 92 CK-MB (CK-2) TNP CK-MB (CK-2) Rel Index TNP Troponin I < 0.012 < 0.012 B-Natriuretic Peptide < 100 Total Protein Albumin Globulin Albumin/Globulin Ratio Lipase 08/12/18 21:53 WBC RBC Hgb Hct MCV MCH MCHC RDW Plt Count Neut % (Auto) Lymph % (Auto) [place] % (Auto) Eos % (Auto) Baso % (Auto) Neut # (Auto) Lymph # (Auto) [place] # (Auto) Eos # (Auto) Baso # (Auto) PT INR APTT Sodium Potassium Chloride Carbon Dioxide BUN Creatinine Estimated GFR BUN/Creatinine Ratio Glucose Calcium Total Bilirubin AST ALT Alkaline Phosphatase Total Creatine Kinase CK-MB (CK-2) CK-MB (CK-2) Rel Index Troponin I < 0.012 B-Natriuretic Peptide Total Protein Albumin Globulin Albumin/Globulin Ratio Lipase Assessment & Plan Assessment & Plan narrative: Aleena Mason is a 68-year-old female with a past medical history significant for hypertension and hyperlipidemia who recently returned from a 2 month trip which included to 11 days of driving across the country and developed right-sided pleuritic chest pain and admitted for right-sided PE. 1. Acute right-sided PE, present on admission. Active. -Patient presented after long drive across country with right-sided pleuritic chest pain. -Switched Lovenox 110 mg subQ twice daily to Xarelto 15 mg twice daily for 15 days and then 20 mg daily for at least 3 months total. -Ordered echocardiogram, pending. -Bilateral doppler ultrasound did not demonstrate and residual DVT. 2. Hypertension, present on admission. Stable. -Continue home amlodipine 7.5 mg daily and losartan 100 mg daily. 3. Hyperlipidemia, present on admission. Stable. -Continue home atorvastatin 10 mg daily at bedtime. 4. Quality VTE Deep Vein Thrombosis/Pulmonary Embolism Present on Admission: Yes
[2018-08-13 05:49] LABS: Add Manual Diff / Slide Review NO; Basophils Absolute Auto 0 /uL (0-100); Basophils Percent Auto 0.4 % (0-2); Eosinophils Absolute Auto 100 /uL (0-450); Eosinophils Percent Auto 1.8 % (2-4); Hematocrit 37.1 % (36-46); Hemoglobin 12.5 g/dL (12.0-16.0); Lymphocytes Absolute Auto 1100 /uL (1100-4500); Lymphocytes Percent Auto 15.8 % (25-40); Mean Corpuscular HGB Conc 33.5 % (30-36); Mean Corpuscular Hemoglobin 29.3 PG (26-34); Mean Corpuscular Volume 87.3 fL (80-100); Monocytes Absolute Auto 800 /uL (0-900); Monocytes Percent Auto 11.9 % (3-14); Neutrophils Absolute Auto 5000 /uL (1500-7000); Neutrophils Percent Auto 70.1 % (50-75); Platelet Count 167 X10^3/uL (150-400); Red Blood Cell Count 4.25 X10^6/uL (4.0-5.2); Red Cell Distribution Width 13.5 % (11.6-14.8); White Blood Cell Count 7.1 X10^3/uL (4.5-11.0)
[2018-08-13 05:59] LABS: BUN Creatinine Ratio 18.8 (6-22); Blood Urea Nitrogen 15 mg/dL (7-17); Calcium 8.4 mg/dL (8.4-10.2); Carbon Dioxide 24 mmol/L (22-32); Chloride 106 mmol/L (98-107); Estimated Glomerular Filt Rate > 60.0 mL/min (>60); Glucose 113 mg/dL (80-110); HEMOLYSIS < 15 (0-50); Potassium 3.8 mmol/L (3.4-5.1); Sodium 138 mmol/L (137-145)
[2018-08-13 07:15] VITALS: BP 126/61; PULSE 61; RESP 16; TEMP 37.5; O2SAT 93
[2018-08-13 08:00] VITALS: O2SAT 97
[2018-08-13] MEDS: RIVAROXABAN 10 MG TABLET 15 MG PO ×2 (08:49→17:19)
[2018-08-13] MEDS: LOSARTAN 50 MG TABLET 100 MG PO (08:51)
[2018-08-13 11:05] VITALS: BP 138/71; PULSE 68; RESP 18; TEMP 36.8; O2SAT 94
--- NOTE | 2018-08-13 12:32 | CM.IDA ---
Discharge Planning/Care Management CM Discharge Assessment Start: 08/13/18 12:25 Freq: Status: Active Protocol: Document 08/13/18 12:25 RITESH (Rec: 08/13/18 12:32 RITESH [id number]) Discharge Planning Assessment Assigned Plant And Maintenance Technician VINCENT Rodriguez DPOA/Assigned Designee Name Jerry Mason, spouse Contact Information [phone] Advance Directives? No History Provided By Patient Significant Other Prior Living Arrangements House Household Members spouse Type of transporation used prior to Drives own vehicle admit Independent with ADL's Yes Is patient alert and oriented? Yes Barriers to Discharge No Comment Pt under observation for PE upon admission afer long [place] road trip w/, being DC on blood thinner Xarelto. Payer: Medicare/ [employer]. Requested by Dr Roberts to investigate Rx coverage for Xarelto/Candace Deras, CM Specialist, discovered through [facility] that after pt met her $365 coverage the Rx would be covered 100%. Reviewed this w/Dr Roberts and w /pt and her spouse. 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 Both very pleasant and appreciative today and have no stated concerns about pt returning home if medically cleared. VINCENT Driver Discharge Plan Home Transportation Arrangement Spouse Referrals Initiated None needed Review Status In Process
[2018-08-13 15:22] VITALS: BP 124/53; PULSE 69; RESP 18; TEMP 37.4; O2SAT 97
--- NOTE | 2018-08-13 17:24 | PC.NURSE ---
Addendum entered by Amy Blackmon R.N. 08/13/18 18:28: Telemetry discontinued and iv discontinued intact. Prescription for xarelto given to pt and pt's spouse. Discharge instructions provided in written and verbal format. Questions answered as appropriate. Pt left hospital with spouse and MAKE UP EDITOR escort in stable condition with all personal belongings accounted for. Original Note: Pt up in chair for evening meal. Spouse is present @ bedside. Dr. Roberts in to speak with pt and spouse and discharge pt.
--- NOTE | 2018-08-13 17:32 | P.DS_ITS ---
History of Present Illness Date Patient Seen: 08/12/18 Chief complaint: shortness of breath, rt side pain upon breathing Narrative: Written by Ciarra SUÁREZ: Aleena Mason is a 68-year-old female with a medical diagnosis of hypertension and hyperlipidemia, returned from a 2 month trip which included to 11 day drives across the country and developed pain with inspiration and expiration during the last 2 nights to the point of waking her up. She states that she has been feeling under the weather since returning from her trip which was approximately 2 weeks ago but went ahead and plugged along, thinking she would improve. She does have complaints of mild headaches that she has been taking ibuprofen for. Her main complaint though which brought her into the ED was shortness of breath. Both her and her were seen by their PCP approximately 1-2 months prior to their trip and were told to discontinue the aspirin. She denies anterior chest pain, palpitations, difficulty swallowing, she did endorse headaches, nausea or vomiting, abdominal pain, dysuria, diarrhea or constipation, rashes, or numbing and tingling in her extremities. She denies having pain in her groin at all. Discharge Providers Date of admission: 08/12/18 15:00 Discharge Date: 08/13/18 Primary care physician: Yoel Moseley MD Consults: 08/12/18 15:51 Consult to Discharge Planning Routine Comment: Discharge provider: Zaida Roberts DO Summary Discharge Diagnosis: 1. Acute provoked right-sided PE, present on admission. Active. 2. Hypertension, present on admission. Stable. 3. Hyperlipidemia, present on admission. Stable. 4. Possible cardiac arrhythmia, not present on admission. Stable. Hospital Course: Aleena Mason is a 68-year-old female with a past medical history significant for hypertension and hyperlipidemia who recently returned from a 2 month trip which included to 11 days of driving across the country and developed right- sided pleuritic chest pain and admitted for right-sided PE. 1. Acute provoked right-sided PE, present on admission. Active. -Patient presented after long drive across country with right-sided pleuritic chest pain. -Echocardiogram demonstrated preserved systolic function with EF 60-65%, no valvular abnormalities, severely dilated left atrium, RVSP 42 mm Hg. -Bilateral doppler ultrasound did not demonstrate and residual DVT. -Switched Lovenox 110 mg subQ twice daily to Xarelto 15 mg twice daily for 15 days and then 20 mg daily for at least 3 months total. 2. Hypertension, present on admission. Stable. -Continued home amlodipine 7.5 mg daily and losartan 100 mg daily. 3. Hyperlipidemia, present on admission. Stable. -Continued home atorvastatin 10 mg daily at bedtime. 4. Possible cardiac arrhythmia, not present on admission. Stable. -Patient reportedly had bigeminy in the ER. -Echocardiogram demonstrated severely dilated left atrium which would increase her risk of atrial fibrillation. -Continued to monitor closely on telemetry. No ectopy throughout hospitalization. Status at Discharge Functional status at discharge: independent ambulation Overall status at discharge: patient is progressing back to baseline Exam Vital Signs (past 8 hours): - 08/13/18 11:05 08/13/18 15:22 Temperature 98.2 F 99.4 F Pulse Rate 68 69 Respiratory Rate 18 18 Blood Pressure 138/71 124/53 L Pulse Oximetry 94 97 Oxygen Delivery Method Room Air Oxygen Flow Rate 0 Narrative Exam Narrative: General: Older female sitting in bedside chair and in no acute distress, well-developed, well-nourished, appropriately interactive. HEENT: Normocephalic, atraumatic. External ears without defect. Pupils equal, round, and reactive to light. Anicteric sclerae, moist conjunctivae, and no lid lag. Neck: Supple with full range of motion. No jugular venous distension. No bruits. No lymphadenopathy or thyromegaly. Cardiovascular: Regular rate and rhythm without murmurs, rubs, or gallops appreciated. Pulmonary: Clear to auscultation bilaterally without crackles, wheezes, or rhon chi. Normal respiratory effort with no use of accessory muscles. Abdomen: Soft, bowel sounds present, nontender, nondistended. No hepatosplenomegaly or masses appreciated. Extremities: No clubbing, cyanosis, or edema. Skin: Normal temperature, turgor, and texture; no rash, ulcers, or subcutaneous nodules appreciated. Neurological: Cranial nerves grossly intact. Psychiatric: Normal mood and affect. Alert and oriented to person, place, and time. Objective Labs Result Diagrams: 08/13/18 05:27 08/13/18 05:27 Labs: Laboratory Results - last 24 hr 08/12/18 08/12/18 08/13/18 17:32 21:53 05:27 WBC 7.1 RBC 4.25 Hgb 12.5 Hct 37.1 MCV 87.3 MCH 29.3 MCHC 33.5 RDW 13.5 Plt Count 167 Neut % (Auto) 70.1 Lymph % (Auto) 15.8 L [place] % (Auto) 11.9 Eos % (Auto) 1.8 L Baso % (Auto) 0.4 Neut # (Auto) 5000 Lymph # (Auto) 1100 [place] # (Auto) 800 Eos # (Auto) 100 Baso # (Auto) 0 Sodium Potassium Chloride Carbon Dioxide BUN Creatinine Estimated GFR BUN/Creatinine Ratio Glucose Calcium Troponin I < 0.012 < 0.012 08/13/18 05:27 WBC RBC Hgb Hct MCV MCH MCHC RDW Plt Count Neut % (Auto) Lymph % (Auto) [place] % (Auto) Eos % (Auto) Baso % (Auto) Neut # (Auto) Lymph # (Auto) [place] # (Auto) Eos # (Auto) Baso # (Auto) Sodium 138 Potassium 3.8 Chloride 106 Carbon Dioxide 24 BUN 15 Creatinine 0.80 Estimated GFR > 60.0 BUN/Creatinine Ratio 18.8 Glucose 113 H Calcium 8.4 Troponin I Discharge Plan Discharge Plan Patient Disposition: Home Discharge comment: You are being discharged home. Your prescribe Xarelto 15 mg twice daily for 21 days then 20 mg daily for total of 3 months. Your blood test to assess for blood clotting disorder is pending and will need to be followed by your PCP, Dr. Hudson. Please follow-up with Dr. Hudson at your scheduled appointment. Recommend you be referred to Hematology for further evaluation regarding blood clotting disorders. Your pleuritic chest pain and mild shortness of breath will improve slowly over time. If they are worsening please see a medical professional immediately. Discharge Med Rec/Prescriptions Prescriptions: New Xarelto 10 mg Tablet 15 mg PO BIDWM Qty: 32 RF: 0 Continued atorvastatin [Lipitor] 10 MG tablet 10 mg PO HS Qty: 0 RF: 0 amlodipine 5 mg tablet 7.5 mg PO BEDTIME RF: 0 losartan 100 mg tablet 100 mg PO DAILY RF: 0 metoprolol succinate 50 mg tablet extended release 24 hr 50 mg PO BEDTIME RF: 0 Follow up/Referrals: Guillermo Hudson MD [Physician] - 1 Week (appt:08/20 @ 4:[address] hudson at [facility] [phone]) Provider Discharge Instructions Diet: Low-fat, Low-sodium and Low-cholesterol Activity: Activity as tolerated. Visit Report/Discharge Packet Instructions: DI for Pulmonary Embolism Visit Report Forms: Stroke Signs & Symptoms Discharge Data Primary Care Provider: Yoel Moseley Attending Provider: Sondra Barajas Admit Date/Time: 08/12/18 15:00 Quality VTE Deep Vein Thrombosis/Pulmonary Embolism Present on Admission: Yes
[2018-08-15 23:09] LABS: Protein C Antigen 78 % normal (70-140)
[2018-08-16 22:35] LABS: Protein C Activity 98 % normal (70-180)
== END 2018-08-13 19:00 | disposition home or self-care (01) ==
LOC: ED 14:47 → AC 15:01
PROVIDERS: Nurse Practitioner Family; Admitting Provider Internal Medicine; Emergency Provider Emergency Medicine; PCP Internal Medicine; Visit Provider Internal Medicine
DX: I26.99 Other pulmonary embolism without acute cor pulmonale (principal); I49.9 Cardiac arrhythmia, unspecified; E78.5 Hyperlipidemia, unspecified; I10 Essential (primary) hypertension; R07.9 Chest pain, unspecified
CPT/HCPCS: 36415; 36591; 71045; 71275; 80048; 80053; 81003; 81240; 81241; 82550; 83690; 83880; 84484; 85025; 85302; 85303; 85610; 85730; 93005; 93306; 93970; 96360; 96361; 96372; 96374; 99283; 99285; G0378; J1650; J1885; Q9967

== ENCOUNTER → 2019-01-21 10:24 | Outpatient (CLI) | payer MEDICARE, OTHER, SELFPAY ==
[2018-08-12 15:15] VITALS: BMI 38.3
[2019-01-21 11:51] LABS: BUN Creatinine Ratio 22.2 (6-22); Blood Urea Nitrogen 20 mg/dL (7-17); Estimated Glomerular Filt Rate > 60.0 mL/min (>60)
== END ==
PROVIDERS: PCP Internal Medicine; Visit Provider Internal Medicine
DX: I26.99 Other pulmonary embolism without acute cor pulmonale (principal)
CPT/HCPCS: 36415; 82565; 84520

== ENCOUNTER → 2019-01-28 13:42 | Outpatient (CLI) | payer MEDICARE, OTHER, SELFPAY ==
[2018-08-12 15:15] VITALS: BMI 38.3
--- NOTE | 2019-01-28 | DI.CT.S_ITS ---
PROCEDURE: CT ANGIO CHEST PE PROTOCOL INDICATIONS: other pulmonay embolism without acute cor pulmonal TECHNIQUE: After the administration of intravenous contrast, 2 mm thick sections acquired from the pulmonary apices to the posterior costophrenic angles. 3-dimensional maximum intensity projection (MIP) coronal and sagittal reformats were then acquired through the thorax. For radiation dose reduction, the following was used: automated exposure control, adjustment of mA and/or kV according to patient size. COMPARISON: [facility], CT, CT ANGIO CHEST PE PROTOCOL, 08/12/2018, 14:00. FINDINGS: Image quality: Excellent. Pulmonary arteries: Pulmonary arteries are normal in size, and demonstrate no intraluminal filling defects to suggest central pulmonary embolism. Previously described right lower lobe pulmonary artery embolus is no longer seen. Lungs and pleura: Mild bibasilar dependent atelectasis is seen. Bilateral lungs are otherwise clear. No pleural effusions or pneumothorax. Central and peripheral airways are patent. Mediastinum: Heart size is enlarged, without pericardial effusion. No mediastinal or hilar adenopathy. Mild to moderate amount of atherosclerotic calcifications are noted. Thoracic aorta is normal in caliber and enhancement. Esophagus is normal in caliber, with a small to moderate-sized hiatal hernia. Bones and chest wall: No suspicious bony lesions. Ribs and thoracic spine appear intact throughout. Thyroid gland is within normal limits. No axillary or supraclavicular adenopathy. Abdomen: Visualized upper abdominal solid organs appear normal in the early arterial phase of enhancement. Hepatic steatosis is seen. IMPRESSION: 1. No evidence of pulmonary emboli is seen on the current study. Interval resolution of previously noted right lower lobe pulmonary artery embolus. No thoracic aortic aneurysm or gross dissection. 2. Bibasilar dependent atelectasis. Bilateral lung gandhi otherwise clear. 3. No mediastinal or hilar lymphadenopathy. Mild cardiomegaly, no pericardial effusion. 4. Small to moderate size hiatal hernia. Hepatic steatosis. Dictated by: Sanjeev Wills M.D. on 01/28/2019 at 14:08 Approved by: Sanjeev Wills M.D. on 01/28/2019 at 14:11
== END ==
PROVIDERS: PCP Internal Medicine; Visit Provider Internal Medicine
DX: I26.99 Other pulmonary embolism without acute cor pulmonale (principal); J98.11 Atelectasis; K44.9 Diaphragmatic hernia without obstruction or gangrene; K76.0 Fatty (change of) liver, not elsewhere classified; I51.7 Cardiomegaly
CPT/HCPCS: 71275; Q9967

== ENCOUNTER → 2019-03-11 09:55 | Outpatient (CLI) | payer MEDICARE, OTHER, SELFPAY ==
[2018-08-12 15:15] VITALS: BMI 38.3
--- NOTE | 2019-03-11 | DI.MG.S_ITS ---
BILATERAL DIGITAL SCREENING MAMMOGRAM 3D/2D WITH CAD: 03/11/2019 CLINICAL: Routine screening. Comparison is made to exams dated: 04/08/2017 mammogram, 03/25/2017 mammogram, and 10/06/2015 mammogram - [facility]. There are scattered fibroglandular elements in both breasts. Current study was also evaluated with a Computer Aided Detection (CAD) system. No significant masses, calcifications, or other findings are seen in either breast. There has been no significant interval change. IMPRESSION: NEGATIVE There is no mammographic evidence of malignancy. A 1 year screening mammogram is recommended. This exam was interpreted at Station ID: [id number]. NOTE: For mammograms, a report in lay terms will be sent to the patient. Approximately 15% of breast malignancies will not be visualized mammographically. In the management of a palpable breast mass, a negative mammogram must not discourage biopsy of a clinically suspicious lesion. Electronically Signed By: Bon Marie M.D. at/eun:03/11/2019 11:53:46 letter sent: Normal Exam ACR BI-RADS Category 1: Negative 3341F
== END ==
PROVIDERS: PCP Internal Medicine; Visit Provider Internal Medicine
DX: Z12.31 Encounter for screening mammogram for malignant neoplasm of breast (principal)
CPT/HCPCS: 77063; 77067

== ENCOUNTER 2019-06-10 07:58 | Day surgery (SDC) | payer MEDICARE, OTHER, SELFPAY ==
[2018-08-12 15:15] VITALS: BMI 38.3
--- NOTE | 2019-06-10 | PATH_ITS ---
[facility] Accession Number: [id number] . 01 Material submitted: . PART A: cecum - CECAL POLYP PART B: colon - TRANSVERSE COLON POLYP . 02 Diagnosis: A. Cecum, Polyp: Tubular adenoma. . B. Transverse Colon, Polyp: Hyperplastic polyp. V 06/11/2019 0956 Local . 02 Electronically signed: . Jeff Olmedo MD, PhD, Pathologist NPI- [id number] . 01 Gross description: . Part A: CECAL POLYP: Received in formalin is 1 fragment(s) of fajardo, soft tissue measuring 0.2 x 0.2 x 0.2 cm submitted entirely in 1 cassette(s) Part B: TRANSVERSE COLON POLYP: Received in formalin is 1 fragment(s) of fajardo, soft tissue measuring 0.3 x 0.3 x 0.2 cm submitted entirely in 1 cassette(s) /[facility] 06/10/2019 1856 Local . 02 Pathologist provided ICD-10: D12.0, K63.5 . 02 CPT . 201251, 748237 Performed at: 01 [facility] [address], [place], [place] [id number] MD Reid Del Rio MD Phone: [phone] Performed at: 02 [facility] [address] [place], [place] [id number] MD Neelam Campbell MD Phone: [phone]
--- NOTE | 2019-06-10 08:03 | PM.HP.1 ---
History of Present Illness History of Present Illness Date Patient Seen: 06/10/19 Chief complaint: [id number] COLONOSCOPY W/POSS BX Narrative: 69-year-old female who is here for the primary surveillance colonoscopy. Her last colonoscopy was 6 years ago. A report is not available for review Patient History Family & Social History Social History: household members spouse Tobacco & Substance use: Smoking Status Never smoker alcohol intake current alcohol intake frequency a few times a week Substance Use Type does not use Meds Home Medications and Allergies Home Medications Medication Instructions Recorded Confirmed Type atorvastatin [Lipitor] 10 mg PO HS #0 tab 12/11/15 06/10/19 History amlodipine 7.5 mg PO BEDTIME 08/12/18 06/10/19 History losartan 100 mg PO DAILY 08/12/18 06/10/19 History metoprolol succinate 50 mg PO BEDTIME 08/12/18 06/10/19 History Respironics Dreamstation CPAP #1 ea 10/16/18 10/16/18 History Allergies Allergy/AdvReac Type Severity Reaction Status Date / Time No Known Drug Allergies Allergy Verified 06/10/19 08:15 Exam Narrative Exam Narrative: General: Patient is obese, not in apparent distress Cardiovascular: Regular rate and rhythm, no murmurs, rubs, or gallops; no evidence of edema; no palpable abdominal aortic aneurysm Gastrointestinal: Normoactive bowel sounds, soft, nontender, nondistended, no rebound tenderness, no hepatosplenomegaly, no evidence of hernia Assessment & Plan Assessment & Plan narrative: 69-year-old female with history of colon polyps who is here for colon polyp surveillance Regarding the procedure(s), the risks and potential complications, benefits, and alternatives (including not doing the procedure) were discussed with the patient. The risks include but are not limited to bleeding, splenic injury, infection, perforation which may require surgical intervention, missed lesions, and adverse reactions to sedative medicines. After a question and answer period, the patient agreed to proceed with the procedure(s) and gives informed consent.
[2019-06-10 08:25] VITALS: BP 155/77; PULSE 92; RESP 15; TEMP 36.3; O2SAT 99; BMI 36.1
[2019-06-10] MEDS: SODIUM CHLORIDE 0.9% 1,000 ML 70 ML IV (08:39)
--- NOTE | 2019-06-10 09:07 | PM.OP.ENDO ---
Operative Date/Time/Diagnoses Date of procedure: 06/10/19 Procedure Notes Procedure in detail: Surgeon: Uriah Villalba MD Procedure: Colonoscopy with biopsy forceps polypectomy Preoperative diagnosis: Colon polyp surveillance Postoperative diagnosis: Colon polyps x2 status post polypectomy, grade 2 internal hemorrhoids Medications: Conscious sedation using 5 mg IV of Midazolam and 100 mcg IV of Fentanyl Preanesthesia Assessment An H and P was performed/updated and the Px?s ASA class is 2. The procedure was discussed in detail with the patient. The potential risks and complications including infection, bleeding, missed lesions, perforation, need for surgery in case of perforation, prolonged hospital stay, and were explained. A brief question and answer period was allotted and once all questions were answered, informed consent was obtained. The patient was brought back to the procedure room and placed on standard monitoring. The patient?s vital signs were monitored continuously throughout the entire procedure. Prior to starting, a timeout was performed to confirm the patient?s identity, allergies, medications, and procedure. Procedure in detail The patient was placed in left lateral decubitus position and once adequate sedation was obtained a SEBASTIAN was performed. The digital rectal examination did not reveal any palpable lesions. The tip of the colonoscope was placed in the anal canal and advanced without difficulty all the way to the cecum which was identified by the appendiceal orifice and the ileocecal valve. Careful examination of all lang of the colon was performed with irrigation of any residual stool. In the cecum, there was note of a 3 mm sessile polyp which was removed by means of cold Jumbo forceps. Resection and retrieval was complete with minimal bleeding. In the transverse colon, there was note of a 2 mm sessile polyp which was removed by means of cold Jumbo forceps. Resection and retrieval was complete with minimal bleeding. Retroflexion was performed in the rectum which revealed grade 2 internal hemorrhoids The patient tolerated the procedure well and will be brought back to the recovery area to be discharged once criteria are met. The prep was judged to be good and adequate to identify polyps less than 5 mm. The withdrawal time was 7 minutes. The total physician intraservice time was 11 minutes. Complications There were no complications and estimated blood loss was minimal. Recommendations: Resume previous diet Continue outPx medications Follow up pathology results Repeat colonoscopy in 5 years An emergency contact number was given to the patient for any complications related to the procedure
[2019-06-10] MEDS: fentaNYL 250 MCG/5 ML INJ IV (09:10)
[2019-06-10] MEDS: MIDAZOLAM 5 MG/5 ML VIAL IV (09:10)
[2019-06-10 09:12] VITALS: BP 120/66; PULSE 65; RESP 17; TEMP 36.6; O2SAT 97
--- NOTE | 2019-06-10 09:14 | SUR.PHASEI ---
Patient awake alert and oriented. Denies pain and nausea.
[2019-06-10 09:17] VITALS: BP 118/67; PULSE 57; RESP 21; O2SAT 97
[2019-06-10 09:22] VITALS: BP 122/71; PULSE 54; RESP 18
[2019-06-10 09:35] VITALS: BP 129/90; PULSE 53; RESP 13; TEMP 36.2; O2SAT 97
[2019-06-10 09:49] VITALS: BP 107/55; PULSE 49; RESP 16; TEMP 36.4; O2SAT 99
== END 2019-06-10 09:58 | disposition home or self-care (01) ==
PROVIDERS: PCP Internal Medicine; Visit Provider Internal Medicine Gastroenterology
PROC: 0DJD8ZZ Inspection of Lower Intestinal Tract, Via Natural or Artificial Opening Endoscopic (ICD-10-PCS; CPT 45378; principal; 2019-06-10 09:00)
DX: Z12.11 Encounter for screening for malignant neoplasm of colon (principal); Z86.010 Personal history of colon polyps; K64.1 Second degree hemorrhoids; D12.0 Benign neoplasm of cecum
CPT/HCPCS: 45380; J2250; J3010

== ENCOUNTER → 2019-06-23 15:03 | Outpatient (ROUT) | payer MEDICARE, OTHER, SELFPAY ==
[2018-08-12 15:15] VITALS: BMI 38.3
[2019-06-23 15:41] LABS: Aspartate Aminotransferase 23 IU/L (14-36); Blood Urea Nitrogen 18 mg/dL (7-17); Carbon Dioxide 28 mmol/L (22-32); Chloride 105 mmol/L (98-107); Cholesterol 188 mg/dL (140-199); Estimated Glomerular Filt Rate > 60.0 mL/min (>60); Glucose 106 mg/dL (80-110); HDL Cholesterol 69 mg/dL (40-60); HEMOLYSIS < 15 (0-50); LDL Cholesterol Calculated 95 mg/dL (<100); Potassium 4.4 mmol/L (3.4-5.1); Sodium 142 mmol/L (137-145); Triglycerides 122 mg/dL (35-150)
== END ==
PROVIDERS: PCP Internal Medicine; Visit Provider Internal Medicine
DX: E78.2 Mixed hyperlipidemia (principal); I10 Essential (primary) hypertension
CPT/HCPCS: 80048; 80061; 84450

== ENCOUNTER → 2020-06-20 20:31 | Outpatient (ROUT) | payer MEDICARE, OTHER, SELFPAY ==
[2018-08-12 15:15] VITALS: BMI 38.3
[2020-06-20 21:29] LABS: Aspartate Aminotransferase 26 IU/L (14-36); BUN Creatinine Ratio 20.8 (6-22); Blood Urea Nitrogen 20 mg/dL (7-17); Calcium 10.2 mg/dL (8.4-10.2); Carbon Dioxide 29 mmol/L (22-32); Chloride 101 mmol/L (98-107); Cholesterol 221 mg/dL (140-199); Estimated Glomerular Filt Rate 57.5 mL/min (>60); Glucose 99 mg/dL (80-110); HDL Cholesterol 70 mg/dL (40-60); HEMOLYSIS < 15 (0-50); LDL Cholesterol Calculated 105 mg/dL (<100); Potassium 4.1 mmol/L (3.4-5.1); Sodium 138 mmol/L (137-145); Triglycerides 231 mg/dL (35-150)
[2020-06-20 21:32] LABS: Hematocrit 44.7 % (36-46); Hemoglobin 14.7 g/dL (12.0-16.0); Mean Corpuscular HGB Conc 32.8 % (30-36); Mean Corpuscular Hemoglobin 29.1 PG (26-34); Mean Corpuscular Volume 88.7 fL (80-100); Platelet Count 285 X10^3/uL (150-400); Red Blood Cell Count 5.04 X10^6/uL (4.0-5.2); Red Cell Distribution Width 13.5 % (11.6-14.8); White Blood Cell Count 7.8 X10^3/uL (4.5-11.0)
[2020-06-20 21:59] LABS: TSH w/ Reflex to FT4 5.23 uIU/mL (0.47-4.68)
[2020-06-20 22:26] LABS: Neutrophils Absolute Manual 4446 /uL (3000-5900); RBC Morphology Normal Morphology; Total Cells Counted 100
[2020-06-20 23:06] LABS: Free T4, Direct Thyroxine 1.14 ng/dL (0.78-2.19)
== END ==
PROVIDERS: PCP Internal Medicine; Visit Provider Internal Medicine
DX: I10 Essential (primary) hypertension (principal); E78.2 Mixed hyperlipidemia; R60.9 Edema, unspecified
CPT/HCPCS: 80048; 80061; 84439; 84443; 84450; 85025

== ENCOUNTER → 2021-07-31 15:13 | Outpatient (CLI) | payer MEDICARE, OTHER, SELFPAY ==
[2018-08-12 15:15] VITALS: BMI 38.3
--- NOTE | 2021-07-31 | DI.MG.S_ITS ---
BILATERAL DIGITAL SCREENING MAMMOGRAM 3D/2D WITH CAD: 07/31/2021 CLINICAL: Routine screening. Comparison is made to exams dated: 03/11/2019 mammogram, 04/08/2017 mammogram, 03/25/2017 mammogram, and 10/06/2015 mammogram - [facility]. There are scattered fibroglandular elements in both breasts. Current study was also evaluated with a Computer Aided Detection (CAD) system. There are benign calcifications in the left breast. No significant masses, calcifications, or other findings are seen in either breast. There has been no significant interval change. IMPRESSION: BENIGN There is no mammographic evidence of malignancy. A 1 year screening mammogram is recommended. This exam was interpreted at Station ID: [id number]. NOTE: For mammograms, a report in lay terms will be sent to the patient. Approximately 15% of breast malignancies will not be visualized mammographically. In the management of a palpable breast mass, a negative mammogram must not discourage biopsy of a clinically suspicious lesion. Electronically Signed By: Clarissa cardoza/eun:08/01/2021 10:50:36 letter sent: Normal Exam ACR BI-RADS Category 2: Benign Finding(s) 3342F
== END ==
PROVIDERS: PCP Internal Medicine; Referring Provider Internal Medicine; Visit Provider Internal Medicine
DX: Z12.31 Encounter for screening mammogram for malignant neoplasm of breast (principal)
CPT/HCPCS: 77063; 77067

== ENCOUNTER → 2021-09-25 09:22 | Outpatient (CLI) | payer MEDICARE, OTHER, SELFPAY ==
[2018-08-12 15:15] VITALS: BMI 38.3
[2021-09-25 09:52] LABS: Hematocrit 43.1 % (36-46); Hemoglobin 14.7 g/dL (12.0-16.0); Mean Corpuscular Hemoglobin 29.9 PG (26-34); Mean Corpuscular Volume 88.2 fL (80-100); Platelet Count 230 X10^3/uL (150-400); Red Blood Cell Count 4.89 X10^6/uL (4.0-5.2); Red Cell Distribution Width 13.8 % (11.6-14.8)
[2021-09-25 10:09] LABS: Alanine Aminotransferase 25 IU/L (<35); Albumin 4.3 g/dL (3.5-5.0); Albumin Globulin Ratio 1.4 (1.0-2.8); Alkaline Phosphatase 93 U/L (38-126); Aspartate Aminotransferase 23 IU/L (14-36); BUN Creatinine Ratio 18.8 (6-22); Bilirubin Total 0.5 mg/dL (0.2-1.3); Blood Urea Nitrogen 16 mg/dL (7-17); Calcium 9.7 mg/dL (8.4-10.2); Carbon Dioxide 27 mmol/L (22-32); Chloride 106 mmol/L (98-107); Cholesterol 189 mg/dL (140-199); Estimated Glomerular Filt Rate > 60 mL/min (>60); Glucose 119 mg/dL (80-110); HDL Cholesterol 68 mg/dL (40-60); HEMOLYSIS < 15 (0-50); LDL Cholesterol Calculated 95 mg/dL (<100); Potassium 4.3 mmol/L (3.4-5.1); Sodium 140 mmol/L (137-145); Total Protein 7.3 g/dL (6.3-8.2); Triglycerides 132 mg/dL (35-150)
[2021-09-25 10:36] LABS: TSH w/ Reflex to FT4 3.19 uIU/mL (0.47-4.68)
== END ==
PROVIDERS: PCP Internal Medicine; Referring Provider Internal Medicine; Visit Provider Internal Medicine
DX: E78.2 Mixed hyperlipidemia (principal); I10 Essential (primary) hypertension; Z86.711 Personal history of pulmonary embolism
CPT/HCPCS: 36415; 80053; 80061; 84443; 85027

== ENCOUNTER → 2022-10-01 10:56 | Outpatient (CLI) | payer MEDICARE, OTHER, SELFPAY ==
[2018-08-12 15:15] VITALS: BMI 38.3
[2022-10-01 12:08] LABS: Alanine Aminotransferase 28 IU/L (<35); Albumin 4.4 g/dL (3.5-5.0); Albumin Globulin Ratio 1.4 (1.0-2.8); Alkaline Phosphatase 97 U/L (38-126); Aspartate Aminotransferase 24 IU/L (14-36); BUN Creatinine Ratio 17.6 (6-22); Bilirubin Total 0.6 mg/dL (0.2-1.3); Blood Urea Nitrogen 15 mg/dL (7-17); Calcium 10.1 mg/dL (8.4-10.2); Carbon Dioxide 27 mmol/L (22-32); Chloride 103 mmol/L (98-107); Cholesterol 204 mg/dL (140-199); Estimated Glomerular Filt Rate > 60 mL/min (>60); Globulin 3.2 g/dL (1.7-4.1); Glucose 103 mg/dL (80-110); HDL Cholesterol 76 mg/dL (40-60); HEMOLYSIS < 15 (0-50); LDL Cholesterol Calculated 97 mg/dL (<100); Potassium 4.4 mmol/L (3.4-5.1); Sodium 140 mmol/L (137-145); Total Protein 7.6 g/dL (6.3-8.2); Triglycerides 157 mg/dL (35-150)
== END ==
PROVIDERS: PCP Internal Medicine; Referring Provider Internal Medicine; Visit Provider Internal Medicine
DX: I10 Essential (primary) hypertension (principal); E78.2 Mixed hyperlipidemia
CPT/HCPCS: 36415; 80053; 80061

== ENCOUNTER → 2023-10-03 10:35 | Outpatient (CLI) | payer MEDICARE, OTHER, SELFPAY ==
[2018-08-12 15:15] VITALS: BMI 38.3
[2023-10-03 11:14] LABS: Hematocrit 41.9 % (36-46); Mean Corpuscular HGB Conc 33.5 % (30-36); Mean Corpuscular Hemoglobin 29.6 PG (26-34); Mean Corpuscular Volume 88.1 fL (80-100); Platelet Count 225 X10^3/uL (150-400); Red Blood Cell Count 4.75 X10^6/uL (4.0-5.2); Red Cell Distribution Width 14.5 % (11.6-14.8); White Blood Cell Count 5.7 X10^3/uL (4.5-11.0)
[2023-10-03 11:37] LABS: Alanine Aminotransferase 24 IU/L (<35); Albumin 4.4 g/dL (3.5-5.0); Albumin Globulin Ratio 1.5 (1.0-2.8); Alkaline Phosphatase 82 U/L (38-126); Aspartate Aminotransferase 24 IU/L (14-36); BUN Creatinine Ratio 28.2 (6-22); Bilirubin Total 0.6 mg/dL (0.2-1.3); Blood Urea Nitrogen 24 mg/dL (7-17); Calcium 9.1 mg/dL (8.4-10.2); Carbon Dioxide 24 mmol/L (22-32); Chloride 108 mmol/L (98-107); Cholesterol 183 mg/dL (140-199); Estimated Glomerular Filt Rate > 60 mL/min (>60); Globulin 2.9 g/dL (1.7-4.1); Glucose 106 mg/dL (80-110); HDL Cholesterol 68 mg/dL (40-60); HEMOLYSIS < 15 (0-50); LDL Cholesterol Calculated 88 mg/dL (<100); Potassium 4.4 mmol/L (3.4-5.1); Sodium 140 mmol/L (137-145); Total Protein 7.3 g/dL (6.3-8.2); Triglycerides 134 mg/dL (35-150)
[2023-10-03 12:07] LABS: TSH w/ Reflex to FT4 2.32 uIU/mL (0.47-4.68)
== END ==
PROVIDERS: PCP Internal Medicine; Referring Provider Internal Medicine; Visit Provider Internal Medicine
DX: I10 Essential (primary) hypertension (principal); Z86.711 Personal history of pulmonary embolism; E78.2 Mixed hyperlipidemia
CPT/HCPCS: 36415; 80053; 80061; 84443; 85027

== ENCOUNTER → 2024-04-13 16:42 | Outpatient (CLI) | payer MEDICARE, OTHER, SELFPAY ==
[2018-08-12 15:15] VITALS: BMI 38.3
[2024-04-17 15:38] LABS: ANA Screen, IFA Negative (.)
== END ==
PROVIDERS: PCP Internal Medicine; Referring Provider Dermatology; Visit Provider Dermatology
DX: R21 Rash and other nonspecific skin eruption (principal)
CPT/HCPCS: 36415; 86038

== ENCOUNTER → 2024-08-17 14:46 | Outpatient (CLI) | payer MEDICARE, OTHER, SELFPAY ==
[2018-08-12 15:15] VITALS: BMI 38.3
--- NOTE | 2024-08-17 14:48 | DI.MG.S_ITS ---
MM screening mammo BI: 08/17/2024. BI-RADS: 2 CLINICAL: 74-year old female for bilateral screening mammogram. Tyrer-Cuzick lifetime risk of 2.6%. No personal or first-degree family history of breast cancer. PRIOR EXAMS 07/31/2021, 03/11/2019, 04/08/2017, 03/25/2017, 10/06/2015. MAMMOGRAPHY TECHNIQUE: 2D and 3D (tomosynthesis) digital mammographic views obtained, with additional images as needed for full coverage. Current study was also evaluated with a Computer Aided Detection (CAD) system. DENSITY B. There are scattered areas of fibroglandular density. MAMMOGRAPHY FINDINGS Bilateral: Benign-appearing calcifications noted. There are no suspicious masses, calcifications, or other findings in the breast. IMPRESSION: * No evidence of malignancy with benign findings. RECOMMENDATIONS Bilateral * Annual screening mammography. OVERALL ASSESSMENT CATEGORY BI-RADS-2: Benign. [employer] recommends annual screening mammography beginning at age 40 for women with average risk of breast cancer. ELECTRONICALLY SIGNED: Myrtle Almendarez M.D. on 08/17/2024 at 05:47:45 PM PT Interpreting Station ID: [id number]
== END ==
PROVIDERS: PCP Internal Medicine; Referring Provider Internal Medicine; Visit Provider Internal Medicine
DX: Z12.31 Encounter for screening mammogram for malignant neoplasm of breast (principal)
CPT/HCPCS: 77063; 77067

== ENCOUNTER → 2024-10-08 09:50 | Outpatient (CLI) | payer MEDICARE, OTHER, SELFPAY ==
[2018-08-12 15:15] VITALS: BMI 38.3
[2024-10-08 11:38] LABS: Aspartate Aminotransferase 25 IU/L (14-36); BUN Creatinine Ratio 19.4 (6-22); Blood Urea Nitrogen 18 mg/dL (7-17); Carbon Dioxide 25 mmol/L (22-32); Chloride 104 mmol/L (98-107); Cholesterol 194 mg/dL (140-199); Estimated Glomerular Filt Rate > 60 mL/min (>60); Glucose 114 mg/dL (70-99); HDL Cholesterol 54 mg/dL (40-60); HEMOLYSIS < 15 (0-50); LDL Cholesterol Calculated 114 mg/dL (<100); Potassium 4.8 mmol/L (3.4-5.1); Sodium 140 mmol/L (137-145); Triglycerides 131 mg/dL (35-150)
== END ==
PROVIDERS: PCP Internal Medicine; Referring Provider Internal Medicine; Visit Provider Internal Medicine
DX: E78.2 Mixed hyperlipidemia (principal); Z86.711 Personal history of pulmonary embolism; I10 Essential (primary) hypertension
CPT/HCPCS: 36415; 80048; 80061; 84450